=== PATIENT | male | born 1955 | race Caucasian/White ===

== ENCOUNTER → 2016-12-24 | Outpatient (CLI) | payer OTHER, MEDICARE ==
[~2016-12-24] MED LIST: ATV1 PO; HYDR-4330 PO; KPP/750 PO; Levothyroxine Sodium PO; MULT-506 PO; PANT40TA PO
[2016-12-24 12:30] LABS: BASO % 0.6 %; BASO ABS # 0.04 K/uL (0-0.2); COMPLETE YES; EOS % 4.9 %; HEMATOCRIT 42.7 % (42-52); IG% 0.3 %; LYMPH % 20.2 %; LYMPH ABS # 1.41 K/uL (1.2-3.4); MEAN CELL VOLUME 99.5 fL (80-100); MEAN CORPUSCULAR HEMOGLOBIN 32.9 pg (25-34); MEAN PLATELET VOLUME 10.3 fL (7.4-10.4); MONO % 9.9 %; NEUT % 64.1 %; PLATELET COUNT 257 K/uL (130-400); RED BLOOD COUNT 4.29 M/uL (4.7-6.1); WHITE BLOOD COUNT 6.98 K/uL (4.8-10.8)
[2016-12-24 12:41] LABS: ALT/SGPT 18 U/L (12-78); BLOOD UREA NITROGEN 18 mg/dl (7-18); BUN/CREATININE RATIO 14.6 (10-20); CALCIUM 9.2 mg/dl (8.5-10.1); CARBON DIOXIDE 31 mmol/L (21-32); CHLORIDE 103 mmol/L (98-107); GLUCOSE 93 mg/dl (70-99); POTASSIUM 4.9 mmol/L (3.5-5.1); SODIUM 140 mmol/L (136-145)
[2016-12-24 12:51] LABS: ALB/GLOB RATIO 0.9 (0.9-2); ALKALINE PHOSPHATASE 90 U/L (45-117); AST/SGOT 10 U/L (15-37)
== END | disposition home or self-care (01) ==
LOC: C.LABPVFM 10:10
PROVIDERS: ATTEND Family Medicine
DX: Z11.59 Encounter for screening for other viral diseases (principal); E03.9 Hypothyroidism, unspecified; K21.9 Gastro-esophageal reflux disease without esophagitis; R22.1 Localized swelling, mass and lump, neck; R05 Cough

== ENCOUNTER → 2016-12-26 | Outpatient (CLI) | payer OTHER, MEDICARE ==
--- NOTE | 2016-12-26 12:48 | DIAGNOSTIC IMAGING REPORT ---
ULTRASOUND SOFT TISSUES NECK CLINICAL HISTORY: Palpable lump. History of unspecified squamous carcinoma. COMPARISON STUDY: CT scan of the cervical spine dated 09/09/2012. Carotid artery ultrasound dated 07/18/2008. FINDINGS: Real-time, grayscale, and color Doppler sonography of the soft tissues of the neck is performed bilaterally. No mass or fluid collection is seen. Tiny benign-appearing cervical lymph nodes are incidentally noted. There is moderate to advanced atherosclerotic plaque in the right carotid bulb. Elevated velocities are seen within the proximal right internal carotid artery measure up to 152 cm/s. This corresponds to approximately 50-69% stenosis by velocity criteria. Imaging of the left carotid artery shows atherosclerotic plaque with no elevated velocities. IMPRESSION: 1. No concerning mass or fluid collection is identified in the neck. No lymphadenopathy seen. 2. There is atherosclerotic plaque with evidence of 50-69% stenosis of the proximal right internal carotid artery by velocity criteria. Electronically signed by: Jeremie Espino M.D. 12/26/2016 12:47 PM Dictated Date/Time: 12/26/2016 12:40 PM
== END | disposition home or self-care (01) ==
LOC: C.ULTR 12:08
PROVIDERS: ATTEND Family Medicine
DX: R22.1 Localized swelling, mass and lump, neck (principal)

== ENCOUNTER → 2017-01-23 | Outpatient (CLI) | payer OTHER, MEDICARE ==
--- NOTE | 2017-01-23 11:17 | DIAGNOSTIC IMAGING REPORT ---
BILATERAL CAROTID DOPPLER STUDY HISTORY: Dizziness. COMPARISON: Carotid Doppler 07/18/2008. TECHNIQUE: Real-time, grayscale, and color Doppler sonography of the carotid arteries was performed. Imaging reviewed in the transverse and longitudinal planes. All measurements were calculated based on NASCET criteria. FINDINGS: Antegrade flow is seen in the bilateral vertebral arteries. The brachial pressures are hemodynamically similar. Moderate focal soft plaque within the bilateral common carotid arteries. There is also moderate right and mild left atherosclerotic plaque within the bilateral carotid bifurcations. The peak systolic velocity within the right ICA is 131 cm/s proximally. The right systolic ratio is 1.8. The peak systolic velocity within the left ICA is 64 cm/s. The left systolic ratio is 0.7. Peak velocity of 138 cm/s within the left external carotid artery. IMPRESSION: 1. Bilateral atherosclerotic plaque as described above. 2. Approximately 50-69% stenosis within the proximal right internal carotid artery. 3. Mild stenosis within the proximal left external carotid artery. Electronically signed by: Jasmeet Cassidy M.D. 01/23/2017 11:16 AM Dictated Date/Time: 01/23/2017 11:11 AM
== END | disposition home or self-care (01) ==
LOC: C.ULTR 10:35
PROVIDERS: ATTEND Family Medicine
DX: R42 Dizziness and giddiness (principal); I65.23 Occlusion and stenosis of bilateral carotid arteries

== ENCOUNTER → 2017-08-05 | Outpatient (CLI) | payer OTHER, MEDICARE ==
[2017-08-05 17:51] LABS: PROSTATE SPECIFIC ANTIGEN 0.991 ng/ml (0.000-4.000); THYROID STIMULATING HORMONE 4.61 uIu/ml (0.300-4.500)
== END | disposition home or self-care (01) ==
LOC: C.LABPVFM 09:52
PROVIDERS: ATTEND Family Medicine
DX: E03.9 Hypothyroidism, unspecified (principal); Z12.5 Encounter for screening for malignant neoplasm of prostate

== ENCOUNTER → 2018-01-05 | Outpatient (CLI) | payer OTHER, BC | END | disposition home or self-care (01) | LOC: C.LABPVFM 10:20 | PROVIDERS: ATTEND Family Medicine | DX: E03.9 Hypothyroidism, unspecified (principal) ==

== ENCOUNTER 2020-06-27 13:43 | Inpatient (IN) ==
[2020-06-27] MEDS ORDERED: SODIUM CHLORIDE 0.9% 1000ML 1,000 ML IV ONE (14:12)
[2020-06-27 14:52] LABS: Basophils # (auto) 0.02 K/uL (0-0.2); Basophils % (auto) 0.2 %; Eosinophils # (auto) 0.02 K/uL (0-0.5); Eosinophils % (auto) 0.2 %; Hematocrit (blood only) 35.6 % (42-52); Hemoglobin 11.6 g/dL (14.0-18.0); Immature Granulocytes # (auto) 0.02 K/uL (0.00-0.02); Immature Granulocytes % (auto) 0.2 %; Lymphocytes # (auto) 0.71 K/uL (1.2-3.4); Lymphocytes % (auto) 8.1 %; Mean Corpuscular Hemoglobin 32.6 pg (25-34); Mean Corpuscular Hgb Conc 32.6 g/dL (32-36); Mean Platelet Volume 10.3 fL (7.4-10.4); Monocytes # (auto) 0.67 K/uL (0.11-0.59); Monocytes % (auto) 7.7 %; Neutrophils # (auto) 7.29 K/uL (1.4-6.5); Neutrophils % (auto) 83.6 %; Platelet Count 221 K/uL (130-400); Red Blood Count 3.56 M/uL (4.7-6.1); White Blood Count 8.73 K/uL (4.8-10.8)
--- NOTE | 2020-06-27 14:53 | Emergency Department Note ---
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 Patient follows with [facility] pulmonology Dr. Beach. He has had a recent CT scan that demonstrated tree-in-bud appearance with left lower lobe predominance which was new compared to February 2019. He has a vest for his bronchiectasis and is on chronic azithromycin prophylactically. There has been discussions of possible PEG tube if symptoms persist. Blood work from yesterday demonstrates WBC within normal limits. Procalcitonin 0.45 creatinine 1.4 with BUN of 29. Denies CP, n/v/d, urinary sx. On arrival the patient is fatigued appearing but no acute distress, afebrile with stable vital signs though does have hypoxia to 87% on RA. He has diminished breath sounds with scant intermittent wheeze. He has normal work of breathing at rest. He does appear clinically dry. EKG without evidence of acute ischemia. CXR with perihilar opacities, which given patient's report of fevers suspicious for pna. WBC and platelets wnl. H/H similar to prior range of values. Chemistry without acidosis. Electrolytes and LFTs unremarkable. Troponin negative/undetectable. BNP wnl. Procalcitonin 0.45. UA without convincing infection. Covid19 pcr negative. Patient was treated empirically with Ertapenem given history of ESBL Klebsiella pna. Given hypoxia, reasonable to admit for further management. Case was discussed with Dr. Lowe, [facility] hospitalist, who will evaluate the patient for admission. Triage Nursing notes reviewed and agree them. Additional history obtained from [facility] records. Prior medical records reviewed Vital Signs: reviewed and remarkable for no significant abnormalities Differential diagnosis: Reactive airway disease, pneumonia, pneumothorax, COPD, CHF, infections, cardiac ischemia, pulmonary embolism, musculoskeletal, gastrointestinal, as well as other pathologies. ER treatment provided: See below. Diagnostics interpreted by me: ECG: Sinus rhythm, 89 bpm, PACs in big[place]y, incomplete RBBB, no overt ST elevation or depression. Cardiac Monitoring: An order for continuous cardiac monitoring was placed and demonstrated sinus rhythm, 89 bpm, PACs Laboratory studies: See below Imaging studies: XR chest 1V portable HISTORY: 65 years-old Male SEPSIS acute sepsis COMPARISON: Chest radiograph 10/03/2015 TECHNIQUE: Portable AP view of the chest FINDINGS: Cardiac silhouette is normal. No pneumothorax, pleural effusion or overt pulmonary edema. Mild asymmetric right perihilar opacities. Mild interstitial coarsening. No pneumothorax, pleural effusion, overt pulmonary edema or airspace consolidation typical for pneumonia. Degenerative changes of the shoulders and spine. Cervical spinal fusion hardware. IMPRESSION: Mild asymmetric right perihilar opacities may be secondary to summa tion density versus subtle airspace disease. Consultation(s): Case was discussed with Dr. Lowe, [facility] hospitalist, who will evaluate the patient for admission. 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 Patient follows with [facility] pulmonology Dr. Beach. He has had a recent CT scan that demonstrated tree-in-bud appearance with left lower lobe predominance which was new compared to February 2019. He has a vest for his bronchiectasis and is on chronic azithromycin prophylactically. There has been discussions of possible PEG tube if symptoms persist. Blood work from yesterday demonstrates WBC within normal limits. Procalcitonin 0.45 creatinine 1.4 with BUN of 29. Denies CP, n/v/d, urinary sx. Blood work from yesterday demonstrates WBC within normal limits. Procalcitonin 0.45 creatinine 1.4 with BUN of 29. ROS: See above HPI for pertinent positives & negatives. A total of 10 systems reviewed and were otherwise negative. PAST MEDICAL HISTORY:See Below PAST SURGICAL HISTORY:See Below FAMILY HISTORY:See Below SOCIAL HISTORY:See Below HOME MEDICATIONS:See Below ALLERGIES:See Below VITALS:See Below PHYSICAL EXAMINATION: GENERAL: Awake, alert, fatigued-appearing, in no distress HENT: Normocephalic, atraumatic. Oropharynx with dry mucous membranes and otherwise unremarkable. . EYES: Normal conjunctiva. Sclera non-icteric. NECK: Supple. No nuchal rigidity. FROM. No JVD. RESPIRATORY: Diminished breath sounds with scant intermittent wheeze. He has normal work of breathing at rest. CARDIAC: Regular rate, normal rhythm. Extremities warm and well perfused. Pulses equal. ABDOMEN: Soft, non-distended. No tenderness to palpation. No rebound or guarding. No masses. RECTAL: Deferred. MUSCULOSKELETAL: Chest examination reveals no tenderness. The back is symmetrical on inspection without obvious abnormality. There is no CVA tenderness to palpation. No joint edema. LOWER EXTREMITIES: Calves are equal size bilaterally and non-tender. No edema. No discoloration. NEURO: Normal sensorium. No sensory or motor deficits noted. SKIN: No rash or jaundice noted. Андрей Silverman MD Past Med/Surg History Medical History Acute postoperative pain of foot Anemia Anxiety state, unspecified Blurry vision BPH (benign prostatic hyperplasia) Bronchiectasis Cervical spondylosis Chronic obstructive pulmonary disease Chronic obstructive pulmonary disease nebulizer bid Difficulty swallowing Disorder of upper airway Dysphagia Esophageal stenosis GERD (gastroesophageal reflux disease) H/O esophageal reflux Hernia History of cancer tonsil History of cancer tonsil 2000--right side--sx/chemo/radiation History of celiac disease History of malignant neoplasm of oropharynx Hoarseness Hyperlipidemia Hypotension Hypothyroidism Hypothyroidism Laryngopharyngeal reflux Macrocytic anemia Neck pain Obstructive sleep apnea Osteoarthritis Persistent insomnia Pulmonary nodule Rupture of left long head biceps tendon 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 Seizure disorder Small cell carcinoma Stenosis of right internal carotid artery Tear of left biceps muscle Tonsillar neoplasm Surgical History H/O vascular surgery attempted to do iliac stent through groin @ [facility]--unable to advance and procedure ended--sent to [facility] in 12/2018 for carotid angioplasty and steting History of ankle fusion left foot after ORIF History of bronchoscopy History of carotid angioplasty right side with stent placed @ [facility] 12/2018 History of colonoscopy with polypectomy History of esophagogastroduodenoscopy (EGD) History of fusion of cervical spine normal ROM History of lymph node excision right side at same time as tonsillectomy History of open reduction and internal fixation (ORIF) procedure right foot--pins/plates in place History of open reduction and internal fixation (ORIF) procedure left foot--pins/plate History of right inguinal hernia repair History of tonsillectomy History of tooth extraction Hx of vasectomy Lymphoma of lymph nodes of neck Vocal cord paralysis sx to improve--02/2019 @ [facility] Family History Mother Rheumatoid arthritis Father Heart disease Stroke Brother Non-Hodgkin lymphoma Heart disease Uncle Colorectal cancer Grandfather (Maternal) Myocardial infarction Grandmother (Maternal) Myocardial infarction Other No family history of adverse response to anesthesia Social History Smoking Status: Former smoker Tobacco Type: Cigarettes Second Hand Exposure: Yes ( smokes in garage, sometimes car); Do You Dip or Chew Tobacco: No; Hx Alcohol Use: Yes Alcohol type: beer Hx Substance Use: No Preferred Language: Italian Communication Ability: Effective Cathead Operator Required: No Beliefs That Will Affect Care: None marital status: Current Living Situation: Family current occupational status: retired 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 Other Information That Helps Us Care for You: No Feels Safe at Home: Yes Safety Concerns: Feels Safe At This Time Childhood Exposure to Second-Hand Smoke: No Dental Care, Regularly: No Seatbelt Use: always Allergies Allergies Allergy/AdvReac Type Severity Reaction Status Date / Time hydromorphone Allergy Severe CARDIAC/RESPIRATORY Verified 06/27/20 15:40 ARREST tetracycline Allergy Intermediate SORES ON Verified 06/27/20 15:40 SKIN Sulfa (Sulfonamide Allergy Mild Rash Verified 06/27/20 15:40 Antibiotics) amoxicillin [From Augmentin] Allergy Unknown Unverified 06/27/20 15:43 clavulanic acid Allergy Unknown Unverified 06/27/20 15:43 [From Augmentin] Home Meds Home Medications Medication Instructions Recorded Confirmed albuterol sulfate 2.5 mg INHALATION BID 09/06/19 06/27/20 aspirin 81 mg PO QAM 09/06/19 06/27/20 multivitamin [Multiple Vitamins] 1 tab PO QAM 09/06/19 06/27/20 mupirocin calcium 1 appln TOPICAL BID PRN 09/06/19 06/27/20 simvastatin 40 mg PO DAILY 09/06/19 06/27/20 triamcinolone acetonide 1 appln TOPICAL BID PRN 09/06/19 06/27/20 Previous Rx's Medication Instructions Recorded levothyroxine 175 mcg tablet 175 mcg PO DAILY #90 tab 03/07/20 levetiracetam 100 mg/mL oral 750 mg PO BID #1419 ml 04/04/20 solution pantoprazole 40 mg tablet,delayed 40 mg PO BID #180 tab 06/12/20 release lorazepam 1 mg tablet 1 mg PO HS PRN #90 tab 06/22/20 Results & Data (ED) Vital Signs Vital Signs - 24 hr 06/27/20 13:53 06/27/20 14:33 06/27/20 14:40 Temperature 37.4 C Temperature Source Oral Pulse Rate 89 88 80 Pulse Rate [Apical] Pulse Rate from SpO2 Sensor 91 H Pulse Rhythm Regular Pulse Strength Normal Respiratory Rate 20 20 17 Respiratory Effort / Characteristics Non-Labored Spontaneous Respiratory Depth Normal Respiratory Pattern Regular Blood Pressure 90/62 L 122/79 Blood Pressure Mean 71 85 Blood Pressure Position Sitting Pulse Oximetry 94 92 Oxygen Delivery Method Room Air Oxygen Flow Rate Sepsis Recent Fever Within 48 Hours No Sepsis New/Unexplained Change in Mental Status No Sepsis Action Taken by Nursing No Action Required 06/27/20 14:41 06/27/20 14:42 06/27/20 15:00 Temperature Temperature Source Pulse Rate 99 H 79 Pulse Rate [Apical] Pulse Rate from SpO2 Sensor 80 Pulse Rhythm Pulse Strength Respiratory Rate 20 24 Respiratory Effort / Characteristics Respiratory Depth Respiratory Pattern Blood Pressure 140/93 Blood Pressure Mean 108 Blood Pressure Position Pulse Oximetry 93 93 91 Oxygen Delivery Method Room Air Room Air Room Air Oxygen Flow Rate Sepsis Recent Fever Within 48 Hours Sepsis New/Unexplained Change in Mental Status Sepsis Action Taken by Nursing 06/27/20 15:01 06/27/20 15:14 06/27/20 15:30 Temperature Temperature Source Pulse Rate 73 74 Pulse Rate [Apical] Pulse Rate from SpO2 Sensor 78 76 Pulse Rhythm Pulse Strength Respiratory Rate 24 21 Respiratory Effort / Characteristics Non-Labored Spontaneous Respiratory Depth Respiratory Pattern Blood Pressure 129/80 Blood Pressure Mean 87 Blood Pressure Position Pulse Oximetry 93 94 91 Oxygen Delivery Method Room Air Room Air Room Air Oxygen Flow Rate Sepsis Recent Fever Within 48 Hours Sepsis New/Unexplained Change in Mental Status Sepsis Action Taken by Nursing 06/27/20 15:31 06/27/20 16:00 06/27/20 16:01 Temperature Temperature Source Pulse Rate 72 79 80 Pulse Rate [Apical] Pulse Rate from SpO2 Sensor 72 79 78 Pulse Rhythm Pulse Strength Respiratory Rate 21 21 18 Respiratory Effort / Characteristics Respiratory Depth Respiratory Pattern Blood Pressure 114/76 Blood Pressure Mean 81 Blood Pressure Position Pulse Oximetry 91 92 89 L Oxygen Delivery Method Room Air Room Air Room Air Oxygen Flow Rate Sepsis Recent Fever Within 48 Hours Sepsis New/Unexplained Change in Mental Status Sepsis Action Taken by Nursing 06/27/20 16:25 06/27/20 16:27 06/27/20 16:30 Temperature Temperature Source Pulse Rate 76 Pulse Rate [Apical] Pulse Rate from SpO2 Sensor 78 Pulse Rhythm Pulse Strength Respiratory Rate 21 Respiratory Effort / Characteristics Respiratory Depth Respiratory Pattern Blood Pressure 139/99 Blood Pressure Mean 104 Blood Pressure Position Pulse Oximetry 87 L 94 95 Oxygen Delivery Method Room Air Nasal Cannula Nasal Cannula Oxygen Flow Rate 2 2 Sepsis Recent Fever Within 48 Hours Sepsis New/Unexplained Change in Mental Status Sepsis Action Taken by Nursing 06/27/20 17:00 06/27/20 17:04 06/27/20 17:30 Temperature Temperature Source Pulse Rate 80 82 Pulse Rate [Apical] 78 Pulse Rate from SpO2 Sensor 78 82 Pulse Rhythm Pulse Strength Respiratory Rate 17 22 24 Respiratory Effort / Characteristics Non-Labored Spontaneous Respiratory Depth Respiratory Pattern Blood Pressure 133/90 100/58 L Blood Pressure Mean 105 69 Blood Pressure Position Pulse Oximetry 94 94 93 Oxygen Delivery Method Nasal Cannula Room Air Nasal Cannula Oxygen Flow Rate 2 1.5 1.5 Sepsis Recent Fever Within 48 Hours Sepsis New/Unexplained Change in Mental Status Sepsis Action Taken by Nursing 06/27/20 18:00 Temperature Temperature Source Pulse Rate 79 Pulse Rate [Apical] Pulse Rate from SpO2 Sensor 69 Pulse Rhythm Pulse Strength Respiratory Rate 21 Respiratory Effort / Characteristics Respiratory Depth Respiratory Pattern Blood Pressure 132/97 Blood Pressure Mean 110 Blood Pressure Position Pulse Oximetry 94 Oxygen Delivery Method Nasal Cannula Oxygen Flow Rate 1.5 Sepsis Recent Fever Within 48 Hours Sepsis New/Unexplained Change in Mental Status Sepsis Action Taken by Nursing Laboratory Data Attestation: I reviewed the patient's lab results. Result diagrams: 06/27/20 14:35 06/27/20 14:35 Lab Results 06/27/20 06/27/20 06/27/20 Range/Units 14:28 14:35 14:35 WBC 8.73 (4.8-10.8) K/uL RBC 3.56 L (4.7-6.1) M/uL Hgb 11.6 L (14.0-18.0) g/dL Hct 35.6 L (42-52) % MCV 100.0 (80-100) fL MCH 32.6 (25-34) pg MCHC 32.6 (32-36) g/dL RDW Std Deviation 48.0 H (36.4-46.3) fL RDW Coeff of Jordy 13.0 (11.5-14.5) % Plt Count 221 (130-400) K/uL MPV 10.3 (7.4-10.4) fL Immature Gran % (Auto) 0.2 % Neut % (Auto) 83.6 % Lymph % (Auto) 8.1 % Marshall % (Auto) 7.7 % Eos % (Auto) 0.2 % Baso % (Auto) 0.2 % Neut # (Auto) 7.29 H (1.4-6.5) K/uL Lymph # (Auto) 0.71 L (1.2-3.4) K/uL Marshall # (Auto) 0.67 H (0.11-0.59) K/uL Eos # (Auto) 0.02 (0-0.5) K/uL Baso # (Auto) 0.02 (0-0.2) K/uL Immature Gran # (Auto) 0.02 (0.00-0.02) K/uL PT 10.9 (9.0-12.0) Seconds INR 1.0 (0.9-1.1) APTT 29.2 (21.0-31.0) Seconds PTT Ratio 1.0 Sodium (136-145) mmol/L Potassium (3.5-5.1) mmol/L Chloride (98-107) mmol/L Carbon Dioxide (21-32) mmol/L Anion Gap (3-11) BUN (7-18) mg/dl Creatinine (0.6-1.4) mg/dl Est Cr Clr Drug Dosing ml/min Est GFR ( Amer) Est GFR (Non-Af Amer) BUN/Creatinine Ratio (10-20) Glucose (70-99) mg/dl Lactate 1.1 (0.4-2.0) mmol/L Calcium (8.5-10.1) mg/dl Phosphorus (2.5-4.9) mg/dl Magnesium (1.8-2.4) mg/dl Total Bilirubin (0.2-1) mg/dl AST (15-37) U/L ALT (12-78) U/L Alkaline Phosphatase (45-117) U/L Troponin I (0-0.045) ng/ml NT-Pro-B Natriuret Pep (0-900) pg/ml Total Protein (6.4-8.2) gm/dl Albumin (3.4-5.0) gm/dl Globulin (2.5-4.0) gm/dl Albumin/Globulin Ratio (0.9-2) Procalcitonin (0-0.5) ng/ml Urine Color Urine Appearance (Clear) Urine pH (4.5-7.5) Ur Specific Hastings (1.000-1.030) Urine Protein (Negative) Urine Glucose (UA) (Negative) Urine Ketones (Negative) Urine Blood (Negative) Urine Nitrite (Negative) Urine Bilirubin (Negative) Urine Urobilinogen (Negative) Ur Leukocyte Esterase (Negative) Urine WBC (Auto) (0-5) /hpf Urine RBC (Auto) (0-4) /hpf U Hyaline Cast (Auto) (0-5) /lpf U Epithel Cells (Auto) (0-5) /lpf Urine Bacteria (Auto) (Negative) COVID-19 Eval Order COVID-19 PCR (Negative) 06/27/20 06/27/20 06/27/20 Range/Units 14:35 14:35 14:47 WBC (4.8-10.8) K/uL RBC (4.7-6.1) M/uL Hgb (14.0-18.0) g/dL Hct (42-52) % MCV (80-100) fL MCH (25-34) pg MCHC (32-36) g/dL RDW Std Deviation (36.4-46.3) fL RDW Coeff of Jordy (11.5-14.5) % Plt Count (130-400) K/uL MPV (7.4-10.4) fL Immature Gran % (Auto) % Neut % (Auto) % Lymph % (Auto) % Marshall % (Auto) % Eos % (Auto) % Baso % (Auto) % Neut # (Auto) (1.4-6.5) K/uL Lymph # (Auto) (1.2-3.4) K/uL Marshall # (Auto) (0.11-0.59) K/uL Eos # (Auto) (0-0.5) K/uL Baso # (Auto) (0-0.2) K/uL Immature Gran # (Auto) (0.00-0.02) K/uL PT (9.0-12.0) Seconds INR (0.9-1.1) APTT (21.0-31.0) Seconds PTT Ratio Sodium 137 (136-145) mmol/L Potassium 4.1 (3.5-5.1) mmol/L Chloride 105 (98-107) mmol/L Carbon Dioxide 27 (21-32) mmol/L Anion Gap 5.0 (3-11) BUN 29 H (7-18) mg/dl Creatinine 1.29 (0.6-1.4) mg/dl Est Cr Clr Drug Dosing 51.7 ml/min Est GFR ( Amer) 66.5 Est GFR (Non-Af Amer) 57.4 BUN/Creatinine Ratio 22.5 H (10-20) Glucose 78 (70-99) mg/dl Lactate (0.4-2.0) mmol/L Calcium 9.3 (8.5-10.1) mg/dl Phosphorus 2.6 (2.5-4.9) mg/dl Magnesium 2.2 (1.8-2.4) mg/dl Total Bilirubin 0.4 (0.2-1) mg/dl AST 13 L (15-37) U/L ALT 17 (12-78) U/L Alkaline Phosphatase 85 (45-117) U/L Troponin I < 0.015 (0-0.045) ng/ml NT-Pro-B Natriuret Pep 427 (0-900) pg/ml Total Protein 7.9 (6.4-8.2) gm/dl Albumin 3.0 L (3.4-5.0) gm/dl Globulin 4.9 H (2.5-4.0) gm/dl Albumin/Globulin Ratio 0.6 L (0.9-2) Procalcitonin 0.45 (0-0.5) ng/ml Urine Color Urine Appearance (Clear) Urine pH (4.5-7.5) Ur Specific Hastings (1.000-1.030) Urine Protein (Negative) Urine Glucose (UA) (Negative) Urine Ketones (Negative) Urine Blood (Negative) Urine Nitrite (Negative) Urine Bilirubin (Negative) Urine Urobilinogen (Negative) Ur Leukocyte Esterase (Negative) Urine WBC (Auto) (0-5) /hpf Urine RBC (Auto) (0-4) /hpf U Hyaline Cast (Auto) (0-5) /lpf U Epithel Cells (Auto) (0-5) /lpf Urine Bacteria (Auto) (Negative) COVID-19 Eval Order Covid19 Done at [facility] COVID-19 PCR (Negative) 06/27/20 06/27/20 Range/Units 14:47 17:40 WBC (4.8-10.8) K/uL RBC (4.7-6.1) M/uL Hgb (14.0-18.0) g/dL Hct (42-52) % MCV (80-100) fL MCH (25-34) pg MCHC (32-36) g/dL RDW Std Deviation (36.4-46.3) fL RDW Coeff of Jordy (11.5-14.5) % Plt Count (130-400) K/uL MPV (7.4-10.4) fL Immature Gran % (Auto) % Neut % (Auto) % Lymph % (Auto) % Marshall % (Auto) % Eos % (Auto) % Baso % (Auto) % Neut # (Auto) (1.4-6.5) K/uL Lymph # (Auto) (1.2-3.4) K/uL Marshall # (Auto) (0.11-0.59) K/uL Eos # (Auto) (0-0.5) K/uL Baso # (Auto) (0-0.2) K/uL Immature Gran # (Auto) (0.00-0.02) K/uL PT (9.0-12.0) Seconds INR (0.9-1.1) APTT (21.0-31.0) Seconds PTT Ratio Sodium (136-145) mmol/L Potassium (3.5-5.1) mmol/L Chloride (98-107) mmol/L Carbon Dioxide (21-32) mmol/L Anion Gap (3-11) BUN (7-18) mg/dl Creatinine (0.6-1.4) mg/dl Est Cr Clr Drug Dosing ml/min Est GFR ( Amer) Est GFR (Non-Af Amer) BUN/Creatinine Ratio (10-20) Glucose (70-99) mg/dl Lactate (0.4-2.0) mmol/L Calcium (8.5-10.1) mg/dl Phosphorus (2.5-4.9) mg/dl Magnesium (1.8-2.4) mg/dl Total Bilirubin (0.2-1) mg/dl AST (15-37) U/L ALT (12-78) U/L Alkaline Phosphatase (45-117) U/L Troponin I (0-0.045) ng/ml NT-Pro-B Natriuret Pep (0-900) pg/ml Total Protein (6.4-8.2) gm/dl Albumin (3.4-5.0) gm/dl Globulin (2.5-4.0) gm/dl Albumin/Globulin Ratio (0.9-2) Procalcitonin (0-0.5) ng/ml Urine Color Dark Yellow Urine Appearance Clear (Clear) Urine pH 6.5 (4.5-7.5) Ur Specific Hastings 1.031 H (1.000-1.030) Urine Protein Trace H (Negative) Urine Glucose (UA) Negative (Negative) Urine Ketones 1+ H (Negative) Urine Blood Negative (Negative) Urine Nitrite Negative (Negative) Urine Bilirubin Negative (Negative) Urine Urobilinogen Negative (Negative) Ur Leukocyte Esterase Negative (Negative) Urine WBC (Auto) 1-5 (0-5) /hpf Urine RBC (Auto) 5-10 H (0-4) /hpf U Hyaline Cast (Auto) 5-10 H (0-5) /lpf U Epithel Cells (Auto) 10-20 H (0-5) /lpf Urine Bacteria (Auto) Negative (Negative) COVID-19 Eval Order COVID-19 PCR NEGATIVE (Negative) Administered Medications Levetiracetam (Levetiracetam Oral Soln 100mg/Ml) 750 mg PO BID VALENTE Stop: 07/27/20 20:59 Last Admin: 06/27/20 21:19 Dose: 750 mg Documented by: [id number] Lorazepam (Lorazepam 1 Mg Tab) 1 mg PO HS PRN PRN Reason: insomnia Stop: 07/27/20 20:19 Last Admin: 06/27/20 22:45 Dose: 1 mg Documented by: [id number] Pantoprazole Sodium (Pantoprazole 40 Mg Tab) 40 mg PO BID VALENTE Stop: 07/27/20 20:59 Last Admin: 06/27/20 21:20 Dose: 40 mg Documented by: [id number] Discontinued Medications Albuterol (Albut/Ipratrop 3mg/0.5mg Neb 3 Ml Vial) 3 ml NEB NOW STA Stop: 06/27/20 16:36 Last Admin: 06/27/20 17:04 Dose: 3 ml Documented by: [id number] Dexamethasone (Dexamethasone Sod Inj 10 Mg/Ml Vial) 10 mg IV NOW ONE Stop: 06/27/20 16:36 Last Admin: 06/27/20 16:48 Dose: 10 mg Documented by: [id number] Guaifenesin (Guaifenesin 600 Mg Tabcr) 600 mg PO NOW STA Stop: 06/27/20 16:36 Last Admin: 06/27/20 16:48 Dose: Not Given Documented by: [id number] Sodium Chloride (Nss 1000ml) 1,000 mls @ 999 mls/hr IV .[id number] ONE Stop: 06/27/20 15:12 Last Infusion: 06/27/20 15:46 Dose: 0 mls/hr Documented by: [id number] Admin: 06/27/20 14:45 Dose: 999 mls/hr Documented by: [id number] Ertapenem (Invanz) 10 mls @ 2 mls/min IV NOW STA Stop: 06/27/20 17:19 Last Admin: 06/27/20 17:33 Dose: 2 mls/min Documented by: [id number] Blood Pressure Blood Pressure Findings: Normal blood pressure Blood Pressure Disposition: further management by hospitalist Discharge Plan Visit Data Chief Complaint: Shortness of Breath/Dyspnea Stated Complaint: SOB, BACK PAIN ED Provider: Андрей Silverman Discharge Problem: Pneumonia, Bronchiectasis, COPD (chronic obstructive pulmonary disease), Hypoxia Patient Disposition: Admitted As Inpatient Discharge Instructions Interventions: ED Discharge Assessment Last Done: 06/27/20 19:29 Discharge Problem: Pneumonia Qualifiers: Pneumonia type: due to unspecified organism Laterality: bilateral Lung location: unspecified part of lung Qualified Code(s): J18.9 - Pneumonia, unspecified organism
[2020-06-27 15:03] LABS: Partial Thromboplastin Time 29.2 Seconds (21.0-31.0); Prothrombin Time 10.9 Seconds (9.0-12.0)
[2020-06-27 15:12] LABS: Alanine Aminotransferase 17 U/L (12-78); Aspartate Aminotransferase 13 U/L (15-37); BUN Creatinine Ratio 22.5 (10-20); Blood Urea Nitrogen 29 mg/dl (7-18); Calcium 9.3 mg/dl (8.5-10.1); Carbon Dioxide 27 mmol/L (21-32); Chloride 105 mmol/L (98-107); Creatinine Clr Calc Pharmacy 51.7 ml/min; Est GFR (African American) 66.5; Est GFR (Non-African American) 57.4; Glucose 78 mg/dl (70-99); Magnesium 2.2 mg/dl (1.8-2.4); Potassium 4.1 mmol/L (3.5-5.1); Sodium 137 mmol/L (136-145)
[2020-06-27 15:17] LABS: Albumin Globulin Ratio 0.6 (0.9-2); Alkaline Phosphatase 85 U/L (45-117); Bilirubin,Total 0.4 mg/dl (0.2-1); Globulin 4.9 gm/dl (2.5-4.0); NT Pro B Type Natriuretic Pept 427 pg/ml (0-900); Phosphorus 2.6 mg/dl (2.5-4.9); Total Protein 7.9 gm/dl (6.4-8.2); Troponin I < 0.015 ng/ml (0-0.045)
--- NOTE | 2020-06-27 16:22 | XRay Report ---
XR chest 1V portable HISTORY: 65 years-old Male SEPSIS acute sepsis COMPARISON: Chest radiograph 10/03/2015 TECHNIQUE: Portable AP view of the chest FINDINGS: Cardiac silhouette is normal. No pneumothorax, pleural effusion or overt pulmonary edema. Mild asymme tric right perihilar opacities. Mild interstitial coarsening. No pneumothorax, pleural effusion, over t pulmonary edema or airspace consolidation typical for pneumonia. Degenerative changes of the should ers and spine. Cervical spinal fusion hardware. IMPRESSION: Mild asymmetric right perihilar opacities may be secondary to summation density versus leger btle airspace disease. ACT 112: Negative or not required by law. The above report was generated using voice recognition software. It may contain grammatical, syntax o r spelling errors. Electronically signed by: Jon Fry M.D. 06/27/2020 4:21 PM
--- NOTE | 2020-06-27 16:33 | Electrocardiogram Report ---
Test Reason : Blood Pressure : / mmHG Vent. Rate : 089 BPM Atrial Rate : 089 BPM P-R Int : 110 ms QRS Dur : 104 ms QT Int : 366 ms P-R-T Axes : 079 087 066 degrees QTc Int : 445 ms Poor data quality, interpretation may be adversely affected Sinus rhythm with short DE with Premature atrial complexes in a pattern of bigeminy Incomplete right bundle branch block Borderline ECG When compared with ECG of 03-OCT-2015 11:12, Premature atrial complexes are now Present Confirmed by Robert Butler ([id number]) on 06/27/2020 4:32:51 PM Referred By: Confirmed By:Robert Butler
[2020-06-27] MEDS ORDERED: ALBUT/IPRATROP 3MG/0.5MG NEB 3 ML VIAL NEB STA (16:35)
[2020-06-27] MEDS ORDERED: guaiFENesin 600 MG TABCR PO STA (16:35)
[2020-06-27] MEDS ORDERED: DEXAMETHASONE SOD INJ 10 MG/ML VIAL IV ONE (16:35)
[2020-06-27] MEDS ORDERED: ERTAPENEM SODIUM 10 ML IV STA (17:15)
[2020-06-27 18:04] LABS: Appearance Urine Clear (Clear); Bacteria Urine Automated Negative (Negative); Blood Urine Negative (Negative); Color Urine Dark Yellow; Glucose Urine UA Negative (Negative); Ketones Urine 1+ (Negative); Leukocyte Esterase Urine Negative (Negative); Nitrite Urine Negative (Negative); Protein Urine Trace (Negative); Specific Gravity Urine 1.031 (1.000-1.030); Urobilinogen Urine Negative (Negative); pH Urine 6.5 (4.5-7.5)
[2020-06-27 18:09] LABS: Bilirubin Urine Negative (Negative); Ictotest Urine Negative (Negative)
--- NOTE | 2020-06-27 18:11 | History & Physical Report ---
Date of Service June 27, 2020 Assessment & Plan (1) Aspiration pneumonitis: vs. PNA. Ertapenem given in ER. No definitive PNA symptoms from history, imaging or exam given chronic bronchiectasis changes. Procalcitonin negative. Will defer further antibiotics to pulmonology as prior treatment for ESBL did not dramatically improve his symptoms Aspiration risk reduction as below. NPO for now pending discussions with [facility], GI and palliative care team for plan of action. (2) Bronchiectasis: Consult pulmonology (3) Pneumonia: Ertapenem given in ER for the antibiotics deferred as above. (4) COPD (chronic obstructive pulmonary disease): Continue duo nebs. On no maintenance inhalers for this. Unclear if true diagnosis. (5) Hypoxia: No oxygen requirement at home. Likely secondary to aspiration pneumonitis. Aim O2 sats > 90% (6) Esophageal stenosis: Notable history of this. No stenosis noted on recent EGD. Will consult GI to assess need for repeat EGD occasional food getting stuck although suspect this is more down to his lack of secretions than esophageal stenosis. (7) Hypothyroidism: Repeat TSH with a.m. labs continue levothyroxine 175 mcg p.o. daily (8) Laryngopharyngeal reflux: Continue pantoprazole 40 mg p.o. twice daily I suspect this caused the loss of his bronchiectasis as he continues to lie flat at night Elevate head of bed greater than 30 degrees at all times (9) History of celiac disease: Notable history of this. Unclear how this was diagnosed. He does not appear to be on a gluten-free diet at present. (10) BPH (benign prostatic hyperplasia): Notable history of this but was taken off medication I understand due to hypotension. Given ongoing symptoms if blood pressure stable will consider adding tamsulosin. (11) Anxiety state, unspecified: Continue his usual Lorazepam 1 mg p.o. at bedtime as needed Admission and Anticipated Discharge Date Admission Date: 06/27/2020 History of Present Illness Chief Complaint: Shortness of breath, fever, cough Primary Care Provider: Umesh Mcintyre DO Zander Aguilar is a 65 year old male with complex past medical history summarized below who presents to the ER with shortness of breath and fever for the last 3 days. Unfortunately the majority of his specialist care takes place in [facility] therefore care is somewhat fragmented and recent pulmonology notes are unavailable at time of admission. He denies any increase in his chronic cough, especially after eating. He just finished a 14 day course of IV ertapenem 8 days prior after Klebsiella ESBL was grown on sputum culture with PNA on CXR ?CT. He feels he has another infection though as his he is hearing more rasping in the center of his chest. No wheezing or chest pain. He does not think the antibiotics or nebulizer treatments improve his symptoms. He knows he chronically aspirates and reports no speech and language therapy has helped him the past. He has also tried electrical stimulation for swallowing at [facility]. Difficulty appears due to pooling of food, unable to initiate swal low reflex and lack of saliva. He reports being in discussion with his facilities maintenance assistant that he may need a PEG tube (he had one previously after his chemoradiation treatment in 2001) due to his weight loss and malnutrition. Lost 8lb in last 6 months. With regards to his swallowing he saw Dr Lopez last year with similar complaints and underwent EGD showing friable orophaynx and was advised to contin ue his current medication an return PRN. 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 He did relatively well directly after this but over the years has developed several complications including vocal cord paralysis, right carotid artery stenosis and dysphagia with chronic aspirations. Underwent bilateral medialization thyroplasty with facia marisa graft from right thigh in February 2019 which although the patient denies helped his ENT surgeon appeared to suggest his hoarseness was significantly improved. Notes additional history of atypical migraines with vision disturbances. Allergies Allergy/AdvReac Type Severity Reaction Status Date / Time hydromorphone Allergy Severe CARDIAC/RESPIRATORY Verified 06/27/20 15:40 ARREST tetracycline Allergy Intermediate SORES ON Verified 06/27/20 15:40 SKIN Sulfa (Sulfonamide Allergy Mild Rash Verified 06/27/20 15:40 Antibiotics) amoxicillin [From Augmentin] Allergy Unknown Unverified 06/27/20 15:43 clavulanic acid Allergy Unknown Unverified 06/27/20 15:43 [From Augmentin] Home Medications Home Medications Medication Instructions Recorded Confirmed Type albuterol sulfate 2.5 mg INHALATION BID 09/06/19 06/27/20 History aspirin 81 mg PO QAM 09/06/19 06/27/20 History multivitamin [Multiple Vitamins] 1 tab PO QAM 09/06/19 06/27/20 History mupirocin calcium 1 appln TOPICAL BID PRN 09/06/19 06/27/20 History simvastatin 40 mg PO DAILY 09/06/19 06/27/20 History triamcinolone acetonide 1 appln TOPICAL BID PRN 09/06/19 06/27/20 History levothyroxine 175 mcg tablet 175 mcg PO DAILY #90 tab 03/07/20 06/27/20 Rx levetiracetam 100 mg/mL oral 750 mg PO BID #1419 ml 04/04/20 06/27/20 Rx solution pantoprazole 40 mg tablet,delayed 40 mg PO BID #180 tab 06/12/20 06/27/20 Rx release lorazepam 1 mg tablet 1 mg PO HS PRN #90 tab 06/22/20 06/27/20 Rx Past Med/Surg History Medical History Acute postoperative pain of foot Anemia Anxiety state, unspecified Blurry vision BPH (benign prostatic hyperplasia) Bronchiectasis Cervical spondylosis Chronic obstructive pulmonary disease Chronic obstructive pulmonary disease nebulizer bid Difficulty swallowing Disorder of upper airway Dysphagia Esophageal stenosis GERD (gastroesophageal reflux disease) H/O esophageal reflux Hernia History of cancer tonsil History of cancer tonsil 2000--right side--sx/chemo/radiation History of celiac disease History of malignant neoplasm of oropharynx Hoarseness Hyperlipidemia Hypotension Hypothyroidism Hypothyroidism Laryngopharyngeal reflux Macrocytic anemia Neck pain Obstructive sleep apnea Osteoarthritis Persistent insomnia Pulmonary nodule Rupture of left long head biceps tendon 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 Seizure disorder Small cell carcinoma Stenosis of right internal carotid artery Tear of left biceps muscle Tonsillar neoplasm Surgical History H/O vascular surgery attempted to do iliac stent through groin @ [facility] [place] 11/2018--unable to advance and procedure ended--sent to [place] in 12/2018 for carotid angioplasty and steting History of ankle fusion left foot after ORIF History of bronchoscopy History of carotid angioplasty right side with stent placed @ [facility] [place] 12[place] History of colonoscopy with polypectomy History of esophagogastroduodenoscopy (EGD) History of fusion of cervical spine normal ROM History of lymph node excision right side at same time as tonsillectomy History of open reduction and internal fixation (ORIF) procedure right foot--pins/plates in place History of open reduction and internal fixation (ORIF) procedure left foot--pins/plate History of right inguinal hernia repair History of tonsillectomy History of tooth extraction Hx of vasectomy Lymphoma of lymph nodes of neck Vocal cord paralysis sx to improve--02/2019 @ [facility] Family History Mother Rheumatoid arthritis Father Heart disease Stroke Brother Non-Hodgkin lymphoma Heart disease Uncle Colorectal cancer Grandfather (Maternal) Myocardial infarction Grandmother (Maternal) Myocardial infarction Other No family history of adverse response to anesthesia Social History Smoking Status: Former smoker Tobacco Type: Cigarettes Second Hand Exposure: Yes ( smokes in garage, sometimes car); Do You Dip or Chew Tobacco: No; Hx Alcohol Use: Yes Alcohol type: beer Hx Substance Use: No Preferred Language: Occitan Communication Ability: Effective Roundhouse Firer/Fireman Required: No Beliefs That Will Affect Care: None marital status: Current Living Situation: Family current occupational status: retired 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 [email or web address] Other Information That Helps Us Care for You: No Feels Safe at Home: Yes Safety Concerns: Feels Safe At This Time Childhood Exposure to Second-Hand Smoke: No Dental Care, Regularly: No Seatbelt Use: always Review of Systems Review of Systems: All systems reviewed & are unremarkable except as noted in HPI & below Physical Exam Constitutional: well developed and + frail appearing; + not well nourished and no acute distress Eyes: PERRL, conjunctivae normal, anicteric sclerae ENMT: Mouth: + dry oral mucous membranes (Very dry) Neck: trachea midline Respiratory: Auscultation: + crackles (Throughout worse on the right base) and + rhonchi (Bilateral coarse upper airway sounds) Cardiovascular: RRR, no murmur, no edema Gastrointestinal (Abdomen): normal bowel sounds, soft, nontender, no hepatosplenomegaly Musculoskeletal: Generalized chronic muscle wasting Skin: no rashes, warm and dry Right neck chronic radiation changes Neurologic: moves all extremities and awake; no focal motor deficits and not confused Psychiatric: A+Ox3, euthymic affect Genitourinary: no CVA tenderness Results & Data Results & Data ([facility]) Vital Signs (Past 12 Hours) Vital Signs Temp Pulse Pulse Resp BP Pulse Ox 06/27/20 17:04 78 22 94 06/27/20 17:00 80 17 133/90 94 06/27/20 16:30 76 21 139/99 95 06/27/20 16:27 94 06/27/20 16:25 87 L 06/27/20 16:01 80 18 89 L 06/27/20 16:00 79 21 114/76 92 06/27/20 15:31 72 21 91 06/27/20 15:30 74 21 129/80 91 06/27/20 15:14 94 06/27/20 15:01 73 24 93 06/27/20 15:00 79 24 140/93 91 06/27/20 14:42 93 06/27/20 14:41 99 H 20 93 06/27/20 14:40 80 17 122/79 92 06/27/20 14:33 88 20 06/27/20 13:53 37.4 C 89 20 90/62 L 94 Diagnostic Findings XR chest 1V portable IMPRESSION: Mild asymmetric right perihilar opacities may be secondary to summation density versus subtle airspace disease. ECG Indication: SOB/dyspnea Rate (beats per minute): 89 Rhythm: normal sinus Findings: + PAC (Bigeminy) and + RBBB (Incomplete) Comparison ECG Date: from (October 03, 2015) Change: the following changes noted (PACs now present) Code Status & VTE Plan Code Status DNR in the event of a cardiac arrest. Discussed likely futility of intubation given his chronic lung disease, aspirations -however at present he was still like to be intubated in the case of a respiratory arrest. VTE Prophylaxis Plan VTE Prophylaxis will be ordered: Yes PG Care Time/CCT Total # of Minutes Spent Total Time Spent with Patient: Total time spent is greater than 50% in coordination of care (as documented) at patient's floor/unit and/or counseling patient: Coding Level of Care Code 58475 Initial Inpt Care Lvl 3 Diagnoses Aspiration pneumonitis J69.0 Bronchiectasis J47.9 Pneumonia J18.9 Laterality: bilateral Lung location: unspecified part of lung Pneumonia type: due to unspecified organism COPD (chronic obstructive pulmonary disease) J44.9 Hypoxia R09.02 Esophageal stenosis K22.2 Hypothyroidism E03.9 Laryngopharyngeal reflux K21.9 History of celiac disease Z87.19 BPH (benign prostatic hyperplasia) N40.0 Anxiety state, unspecified F41.1 (1) Pneumonia Laterality: bilateral Lung location: unspecified part of lung Pneumonia type: due to unspecified organism Qualified Code(s): J18.9 - Pneumonia, unspecified organism
[2020-06-27] MEDS ORDERED: ACETAMINOPHEN 325 MG TAB PO PRN (20:20)
[2020-06-27] MEDS ORDERED: ONDANSETRON INJ 2 MG/ML 2 ML VIAL IV PRN (20:20)
[2020-06-27] MEDS ORDERED: TRIAMCINOLONE ACET 0.5% CR 15 GM TUBE TOP PRN (20:20)
[2020-06-27] MEDS ORDERED: MUPIROCIN 2% OINT 22 GM TUBE EXT PRN (20:28)
[2020-06-27] MEDS ORDERED: ALBUTEROL 0.083% NEBU SOLN 3 ML VIAL INH SCH (21:00)
[2020-06-27] MEDS: levETIRAcetam ORAL SOLN 100MG/ML PO SCH (21:19)
[2020-06-27] MEDS: PANTOprazole 40 MG TAB PO SCH (21:20)
[2020-06-27] MEDS: LORazepam 1 MG TAB PO PRN (22:45)
[2020-06-28] MEDS: ALBUTEROL 0.083% NEBU SOLN 3 ML VIAL INH SCH ×3 (01:52→19:31)
[2020-06-28] MEDS: LACTATED RINGER'S 1,000 ML IV SCH ×3 (01:55→14:06)
[2020-06-28] MEDS: LEVOTHYROXINE SODIUM 175 MCG TABLET PO SCH (05:37)
[2020-06-28 07:22] LABS: Hematocrit (blood only) 33.6 % (42-52); Hemoglobin 10.9 g/dL (14.0-18.0); Lymphocytes # (auto) 0.54 K/uL (1.2-3.4); Lymphocytes % (auto) 11.2 %; Mean Corpuscular Hemoglobin 32.3 pg (25-34); Mean Corpuscular Hgb Conc 32.4 g/dL (32-36); Mean Corpuscular Volume 99.7 fL (80-100); Mean Platelet Volume 10.2 fL (7.4-10.4); Monocytes # (auto) 0.34 K/uL (0.11-0.59); Neutrophils # (auto) 3.95 K/uL (1.4-6.5); Neutrophils % (auto) 81.8 %; Platelet Count 218 K/uL (130-400); RDW Coefficient of Variation 12.9 % (11.5-14.5); Red Blood Count 3.37 M/uL (4.7-6.1); White Blood Count 4.83 K/uL (4.8-10.8)
[2020-06-28 08:01] LABS: BUN Creatinine Ratio 30.2 (10-20); Calcium 9.2 mg/dl (8.5-10.1); Creatinine Clr Calc Pharmacy 80.4 ml/min; Est GFR (African American) 106.3; Est GFR (Non-African American) 91.7; Potassium 4.3 mmol/L (3.5-5.1)
[2020-06-28 08:12] LABS: Thyroid Stimulating Hormone 0.009 uIu/ml (0.300-4.500)
[2020-06-28 08:27] LABS: T4 Free Thyroxine 1.52 ng/dl (0.8-1.6)
--- NOTE | 2020-06-28 09:32 | Gastrointestinal Consultation ---
Date of Consultation June 28, 2020 Assessment & Plan (1) Chronic pulmonary aspiration: Patient with history of dysphagia with chronic aspiration related to previous radiation therapy s/p tonsillar cancer. Maintain NPO Obtain video swallow Dr. Lopez will evaluate patient this afternoon and discuss options including PEG tube placement. History of Present Illness Attending Physician: Serge Schultz History of Present Illness The patient is a pleasant 65-year-old male with past medical history to include vocal cord paralysis, obstructive sleep apnea, laryngeal pharyngeal reflux, macrocytic anemia, hypothyroidism, hypertension, dysphasia, BPH, tonsillar neoplasm status post radiation, stenosis of right internal carotid artery, celiac disease, COPD, bronchiectasis who presented to the emergency department on 06/27/2020 due to worsening shortness of breath over the past week with fevers to 101 via PICC line. With a recent complicated course of ESBL Klebsiella pneumonia having completed IV antibiotics. Patient n.p.o. with admission. Speech consult placed. The patient has been seen by Dr. Lopez previously in the office on 08/22/2019 due to complaints of dysphasia and weight loss. Patient has required esophageal dilatation in the past. 09/16/2019 an EGD was performed that demonstrated friable oropharynx with a second portion of the duodenum being normal. Biopsies were taken to evaluate for celiac disease. Nonbleeding diverticulum found in the gastric fundus. Middle third of the esophagus was normal. Biopsies were also taken at that time. On exam/interview today, the patient is alert pleasant and oriented. He reports that following PICC line antibiotic therapy symptoms of fever and cough with productive sputum began approximately 1 week after treatment. He states symptoms resumed approximately 5 days ago. He reports persistent cough for the last 3 months. He reports multiple episodes where he is required antibiotics thought to be related to aspiration. The patient reports that he has had an 8 to 9 pound weight loss over the last 6 months. He has a history of tonsil cancer in 2002 in which she received chemo and radiation. He did have a PEG tube following his surgery initially. He has discussed with car changer that PEG tube may be required due to weight loss and malnutrition. The patient is unsure if he would like to proceed with a PEG tube. Last video swallow per the patient was performed at [facility] approximately 1.5 years ago prior to right carotid artery stent placement. Demonstrated pooling in his pharynx per patient. He does have a history of vocal cord paralysis. He also reports that his epiglottis does not function properly. Denies any complaints of nausea, vomiting, abdominal pain. He produces no saliva and has trouble swallowing. Allergies Allergy/AdvReac Type Severity Reaction Status Date / Time hydromorphone Allergy Severe CARDIAC/RESPIRATORY Verified 06/27/20 15:40 ARREST tetracycline Allergy Intermediate SORES ON Verified 06/27/20 15:40 SKIN Sulfa (Sulfonamide Allergy Mild Rash Verified 06/27/20 15:40 Antibiotics) amoxicillin [From Augmentin] Allergy Unknown Unverified 06/27/20 15:43 clavulanic acid Allergy Unknown Unverified 06/27/20 15:43 [From Augmentin] Home Medications Home Medications Medication Instructions Recorded Confirmed Type albuterol sulfate 2.5 mg INHALATION BID 09/06/19 06/27/20 History aspirin 81 mg PO QAM 09/06/19 06/27/20 History multivitamin [Multiple Vitamins] 1 tab PO QAM 09/06/19 06/27/20 History mupirocin calcium 1 appln TOPICAL BID PRN 09/06/19 06/27/20 History simvastatin 40 mg PO DAILY 09/06/19 06/27/20 History triamcinolone acetonide 1 appln TOPICAL BID PRN 09/06/19 06/27/20 History levothyroxine 175 mcg tablet 175 mcg PO DAILY #90 tab 03/07/20 06/27/20 Rx levetiracetam 100 mg/mL oral 750 mg PO BID #1419 ml 04/04/20 06/27/20 Rx solution pantoprazole 40 mg tablet,delayed 40 mg PO BID #180 tab 06/12/20 06/27/20 Rx release lorazepam 1 mg tablet 1 mg PO HS PRN #90 tab 06/22/20 06/27/20 Rx Patient History Medical History (Updated 06/28/20 @ 01:07 by Joao Lowe MD) Acute postoperative pain of foot Anemia Anxiety state, unspecified Blurry vision BPH (benign prostatic hyperplasia) Bronchiectasis Cervical spondylosis Chronic obstructive pulmonary disease Chronic obstructive pulmonary disease nebulizer bid Difficulty swallowing Disorder of upper airway Dysphagia Esophageal stenosis GERD (gastroesophageal reflux disease) H/O esophageal reflux Hernia History of cancer tonsil History of cancer tonsil 2000--right side--sx/chemo/radiation History of celiac disease History of malignant neoplasm of oropharynx Hoarseness Hyperlipidemia Hypotension Hypothyroidism Hypothyroidism Laryngopharyngeal reflux Macrocytic anemia Neck pain Obstructive sleep apnea Osteoarthritis Persistent insomnia Pulmonary nodule Rupture of left long head biceps tendon 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 George--on [place], unknown cause Seizure disorder Small cell carcinoma Stenosis of right internal carotid artery Tear of left biceps muscle Tonsillar neoplasm Surgical History H/O vascular surgery attempted to do iliac stent through groin @ [facility] 11/2018--unable to advance and procedure ended--sent to [facility] in 12/2018 for carotid angioplasty and steting History of ankle fusion left foot after ORIF History of bronchoscopy History of carotid angioplasty right side with stent placed @ [facility] 12/2018 History of colonoscopy with polypectomy History of esophagogastroduodenoscopy (EGD) History of fusion of cervical spine normal ROM History of lymph node excision right side at same time as tonsillectomy History of open reduction and internal fixation (ORIF) procedure right foot--pins/plates in place History of open reduction and internal fixation (ORIF) procedure left foot--pins/plate History of right inguinal hernia repair History of tonsillectomy History of tooth extraction Hx of vasectomy Lymphoma of lymph nodes of neck Vocal cord paralysis sx to improve--02/2019 @ [facility] Family History Mother Rheumatoid arthritis Father Heart disease Stroke Brother Non-Hodgkin lymphoma Heart disease Uncle Colorectal cancer Grandfather (Maternal) Myocardial infarction Grandmother (Maternal) Myocardial infarction Other No family history of adverse response to anesthesia Social History Smoking Status: Former smoker Tobacco Type: Cigarettes Second Hand Exposure: Yes ( smokes in garage, sometimes car); Do You Dip or Chew Tobacco: No; Hx Alcohol Use: Yes Alcohol type: beer Hx Substance Use: No Preferred Language: Tajik Communication Ability: Effective Section Gang Worker Required: No Beliefs That Will Affect Care: None marital status: Current Living Situation: Family current occupational status: retired 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 [employer] Other Information That Helps Us Care for You: No Feels Safe at Home: Yes Safety Concerns: Feels Safe At This Time Childhood Exposure to Second-Hand Smoke: No Dental Care, Regularly: No Seatbelt Use: always Review of Systems Constitutional: no problem reported Eyes: no problem reported Ear, Nose, Mouth, Throat: no problem reported Respiratory: as per Subjective / HPI Cardiovascular: no problem reported Gastrointestinal: no problem reported Musculoskeletal: no problem reported Integumentary: no problem reported Neurologic: no problem reported Psychiatric: no problem reported Endocrine: no problem reported Hematologic / Lymphatic: no problem reported Allergy / Immunological: no problem reported Physical Exam Constitutional: WD/WN, vitals as above Eyes: PERRL, conjunctivae normal, anicteric sclerae wears corrective lenses ENMT: external ear and nose normal, oropharynx normal Neck: normal visual inspection Respiratory: Auscultation: + diminished lung sounds and + wheezes (scattered bilaterally ) Cardiovascular: RRR, no murmur, no edema Gastrointestinal (Abdomen): normal bowel sounds, soft, nontender, no hepatosplenomegaly Musculoskeletal: no cyanosis or clubbing, extremities motor strength 5/5 Psychiatric: A+Ox3, euthymic affect Results & Data ([facility]) Vital Signs (Past 12 Hours) Vital Signs Temp Pulse Resp BP Pulse Ox 06/28/20 07:15 36.4 C L 76 16 155/98 H 92 06/28/20 06:59 70 20 93 06/27/20 23:00 36.7 C 65 18 139/85 91 Laboratory Results - last 24 hr 06/27/20 06/27/20 06/27/20 14:28 14:35 14:35 WBC 8.73 RBC 3.56 L Hgb 11.6 L Hct 35.6 L MCV 100.0 MCH 32.6 MCHC 32.6 RDW Std Deviation 48.0 H RDW Coeff of Jordy 13.0 Plt Count 221 MPV 10.3 Immature Gran % (Auto) 0.2 Neut % (Auto) 83.6 Lymph % (Auto) 8.1 [place] % (Auto) 7.7 Eos % (Auto) 0.2 Baso % (Auto) 0.2 Neut # (Auto) 7.29 H Lymph # (Auto) 0.71 L [place] # (Auto) 0.67 H Eos # (Auto) 0.02 Baso # (Auto) 0.02 Immature Gran # (Auto) 0.02 PT 10.9 INR 1.0 APTT 29.2 PTT Ratio 1.0 Sodium Potassium Chloride Carbon Dioxide Anion Gap BUN Creatinine Est Cr Clr Drug Dosing Est GFR ( Amer) Est GFR (Non-Af Amer) BUN/Creatinine Ratio Glucose Lactate 1.1 Calcium Phosphorus Magnesium Total Bilirubin AST ALT Alkaline Phosphatase Troponin I NT-Pro-B Natriuret Pep Total Protein Albumin Globulin Albumin/Globulin Ratio Procalcitonin TSH Free T4 Urine Color Urine Appearance Urine pH Ur Specific Samson Urine Protein Urine Glucose (UA) Urine Ketones Urine Blood Urine Nitrite Urine Bilirubin Urine Urobilinogen Ur Leukocyte Esterase Urine WBC (Auto) Urine RBC (Auto) U Hyaline Cast (Auto) U Epithel Cells (Auto) Urine Bacteria (Auto) COVID-19 Eval Order COVID-19 PCR 06/27/20 06/27/20 06/27/20 14:35 14:35 14:47 WBC RBC Hgb Hct MCV MCH MCHC RDW Std Deviation RDW Coeff of Jordy Plt Count MPV Immature Gran % (Auto) Neut % (Auto) Lymph % (Auto) [place] % (Auto) Eos % (Auto) Baso % (Auto) Neut # (Auto) Lymph # (Auto) [place] # (Auto) Eos # (Auto) Baso # (Auto) Immature Gran # (Auto) PT INR APTT PTT Ratio Sodium 137 Potassium 4.1 Chloride 105 Carbon Dioxide 27 Anion Gap 5.0 BUN 29 H Creatinine 1.29 Est Cr Clr Drug Dosing 51.7 Est GFR ( Amer) 66.5 Est GFR (Non-Af Amer) 57.4 BUN/Creatinine Ratio 22.5 H Glucose 78 Lactate Calcium 9.3 Phosphorus 2.6 Magnesium 2.2 Total Bilirubin 0.4 AST 13 L ALT 17 Alkaline Phosphatase 85 Troponin I < 0.015 NT-Pro-B Natriuret Pep 427 Total Protein 7.9 Albumin 3.0 L Globulin 4.9 H Albumin/Globulin Ratio 0.6 L Procalcitonin 0.45 TSH Free T4 Urine Color Urine Appearance Urine pH Ur Specific Samson Urine Protein Urine Glucose (UA) Urine Ketones Urine Blood Urine Nitrite Urine Bilirubin Urine Urobilinogen Ur Leukocyte Esterase Urine WBC (Auto) Urine RBC (Auto) U Hyaline Cast (Auto) U Epithel Cells (Auto) Urine Bacteria (Auto) COVID-19 Eval Order Covid19 Done at [facility] COVID-19 PCR 06/27/20 06/27/20 06/28/20 14:47 17:40 06:50 WBC 4.83 RBC 3.37 L Hgb 10.9 L Hct 33.6 L MCV 99.7 MCH 32.3 MCHC 32.4 RDW Std Deviation 47.0 H RDW Coeff of Jordy 12.9 Plt Count 218 MPV 10.2 Immature Gran % (Auto) 0.0 Neut % (Auto) 81.8 Lymph % (Auto) 11.2 [place] % (Auto) 7.0 Eos % (Auto) 0.0 Baso % (Auto) 0.0 Neut # (Auto) 3.95 Lymph # (Auto) 0.54 L [place] # (Auto) 0.34 Eos # (Auto) 0.00 Baso # (Auto) 0.00 Immature Gran # (Auto) 0.00 PT INR APTT PTT Ratio Sodium Potassium Chloride Carbon Dioxide Anion Gap BUN Creatinine Est Cr Clr Drug Dosing Est GFR ( Amer) Est GFR (Non-Af Amer) BUN/Creatinine Ratio Glucose Lactate Calcium Phosphorus Magnesium Total Bilirubin AST ALT Alkaline Phosphatase Troponin I NT-Pro-B Natriuret Pep Total Protein Albumin Globulin Albumin/Globulin Ratio Procalcitonin TSH Free T4 Urine Color Dark Yellow Urine Appearance Clear Urine pH 6.5 Ur Specific Samson 1.031 H Urine Protein Trace H Urine Glucose (UA) Negative Urine Ketones 1+ H Urine Blood Negative Urine Nitrite Negative Urine Bilirubin Negative Urine Urobilinogen Negative Ur Leukocyte Esterase Negative Urine WBC (Auto) 1-5 Urine RBC (Auto) 5-10 H U Hyaline Cast (Auto) 5-10 H U Epithel Cells (Auto) 10-20 H Urine Bacteria (Auto) Negative COVID-19 Eval Order COVID-19 PCR NEGATIVE 06/28/20 06/28/20 06:50 06:50 WBC RBC Hgb Hct MCV MCH MCHC RDW Std Deviation RDW Coeff of Jordy Plt Count MPV Immature Gran % (Auto) Neut % (Auto) Lymph % (Auto) [place] % (Auto) Eos % (Auto) Baso % (Auto) Neut # (Auto) Lymph # (Auto) [place] # (Auto) Eos # (Auto) Baso # (Auto) Immature Gran # (Auto) PT INR APTT PTT Ratio Sodium 139 Potassium 4.3 Chloride 106 Carbon Dioxide 26 Anion Gap 7.0 BUN 25 H Creatinine 0.83 D Est Cr Clr Drug Dosing 80.4 Est GFR ( Amer) 106.3 Est GFR (Non-Af Amer) 91.7 BUN/Creatinine Ratio 30.2 H Glucose 130 H Lactate Calcium 9.2 Phosphorus Magnesium Total Bilirubin AST ALT Alkaline Phosphatase Troponin I NT-Pro-B Natriuret Pep Total Protein Albumin Globulin Albumin/Globulin Ratio Procalcitonin 0.35 TSH 0.009 L Free T4 1.52 Urine Color Urine Appearance Urine pH Ur Specific [place] Urine Protein Urine Glucose (UA) Urine Ketones Urine Blood Urine Nitrite Urine Bilirubin Urine Urobilinogen Ur Leukocyte Esterase Urine WBC (Auto) Urine RBC (Auto) U Hyaline Cast (Auto) U Epithel Cells (Auto) Urine Bacteria (Auto) COVID-19 Eval Order COVID-19 PCR
--- NOTE | 2020-06-28 09:45 | Pulmonary Consultation ---
Date of Consultation June 28, 2020 Assessment & Plan (1) COPD (chronic obstructive pulmonary disease): This is a 65-year-old male with a long history of vocal cord paralysis and epiglottal dysfunction. Patient has a 3-day history of fever and shortness of breath. He was admitted 06/27/2020 for further evaluation treatment for question of aspiration pneumonitis. 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 1. Bronchiectasis exacerbation: Patient has known bronchiectasis and uses a pneumatic vest at home. Patient does have history of ESBL in the sputum. Will start the patient on Zosyn. On discharge patient can convert to levofloxacin and continue for total of 10 days of antibiotic therapy. During the patient's inpatient stay, we will use a pneumatic vest, flutter valve, pulmonary toilet. Patient should be on isolation precautions as his most recent ESBL revealed E. coli and Klebsiella pneumoniae 06/01/2020. Does not appear the patient has had work-up for autoimmune disease. There is a pending order and the [employer] system for an alpha 1 antitrypsin level. Will defer work-up to outpatient clinic. 2. COPD: Pulmonary function testing from 02/09/2019 shows obstruction, FEV1 107%, flow volume loop suggestive of possible extrathoracic obstruction. Compared to PFTs from 01/11/2016, FEV1 and FVC appear improved. No indication for steroids as patient does not have any bronchospasm on exam. Antibiotics as above. 3. Dysphagia: Patient has had multiple video swallow swallow studies and they all show aspiration. Patient has known etiology with dysfunctional epiglottis as well as paralyzed vocal cord. Patient does follow with Dr. Lopez from [facility] and they have been discussing PEG tube placement. Patient had repeat video swallow study scheduled today. Will defer balance of work-up to gastroenterology. Continue with aspiration precautions. Head of bed greater than 30 degrees. Out of bed to chair for all meals. Refer to recommendations from speech language pathology. 4. Laryngeal reflux disease: Patient does have hiatal hernia. At one time he was approximately 210 pounds but has lost a significant mount of weight. He continues to struggle with reflux and is on pantoprazole 40 mg p.o. twice daily. He has had EGD with Dr. Lopez in the past. Continue to manage through gastroenterology. Thank you very much for including us in the care of this patient. We will continue to follow along with you. Please refer to Dr. Lunsford's addendum for further recommendations. (2) Chronic pulmonary aspiration: (3) Bronchiectasis: (4) Dysphagia: (5) Laryngopharyngeal reflux: (6) Vocal fold paralysis, right: Supervising Physician Co-Signing Physician Notes Patient seen and examined with Jeremie montague PA-C. I agree with his assessment and plan aside for any additions/exceptions noted: Patient with a known history of bronchiectasis (etiology of bronchiectasis is unclear) and vocal cord paralysis who is followed by [facility] pulmonary group. He recently completed 2 weeks of ertapenem via IV PICC line. He is presenting to the hospital with increasing shortness of breath, fatigue and a low-grade fever over the weekend. COVID-19 testing was negative. Chest x-ray with no si gnificant infiltrates on presentation during this hospital admission. He also notes that he has been losing substantial amount of weight and his appetite is decreased. He does describe aspiration when eating which involves coughing frequently while eating. He is trying to stick to aspiration precautions such as keeping his head of the bed elevated when sleeping and eating in an upright position. Recommend obtaining a sputum culture and treating him with IV Zosyn. I did look at his previous sputum cultures from [facility] which indicated ESBL E. coli with sensitivity to Zosyn and Klebsiella that was pansensitive. Depending on the sputum cultures during this hospital admission, we might change his antibiotics somewhat. Otherwise, depending on his hospital course, I would recommend discharging him on p.o. Levaquin when he is ready to go home. He is going to have a discussion with GI regarding a PEG tube placement given his poor nutrition. Continue PPI twice daily for GERD. He does have a history of a dilated esophagus on his CT chest. History of Present Illness Attending Physician: Serge Schultz History of Present Illness Attending: Dr. Lunsford This is a 65-year-old male with a past medical history of COPD, tonsillar cancer squamous cell, dysphagia, vocal cord paralysis, bronchiectasis, hypothyroidism, sputum ESBL with E. coli and Klebsiella pneumoniae (02/10/2018 to present), pulmonary MRSA (05/06/2017), history of tobacco abuse, history of seizures, carotid artery stenosis. The patient follows with Dr. Beach at [facility]. He reports that over the last several days he has had increasing shortness of breath and fatigue with fever. The patient has a history of head and neck cancer with tonsillar involvement. He has had surgery for that and since that time has had vocal cord paralysis as well as dysfunction of the epiglottis. He has chronic history of aspiration complicated by bronchiectasis. Patient has had multiple CT scans. Images have been requested and are pending. Patient also has history of E. coli ESBL as well as Klebsiella pneumoniae ESBL 06/01/2020 from pulmonary culture. Evidence of Klebsiella pneumoniae goes back to 05/06/2017 as discovered with bronchoscopy. At that time patient also grew out MRSA from the sputum. Patient had a bronchoscopy 05/06/[address] Beach secondary to hemoptysis with abnormal chest x-ray. There is no evidence of endobronchial lesions and no evidence of stigmata. Patient was noted at that time to have vocal cord paralysis and had thick secretions throughout the tracheobronchial tree. Patient has had multiple sputum cultures in addition to bronchoscopy. All were negative for AFB. Patient has never had an alpha-1 antitrypsin level. This was ordered and is a future order in the [facility] system. Patient states that he does have a pneumo vest at home which he uses usually twice a day. When he is more short of breath and feels as though he has more mucus, he uses it up to 4 times daily. He denies any hemoptysis. He has no significant sputum production. He has frequent wet cough but is unable to clear any secretions. Aside from his fever, he has no recent acute complaints. Patient has no recent sick contacts. He has no other symptoms or signs of COVID-19. SARS-CoV-2 RNA test was negative in February 2020. COVID-19 PCR was negative this admission. Allergies Allergy/AdvReac Type Severity Reaction Status Date / Time hydromorphone Allergy Severe CARDIAC/RESPIRATORY Verified 06/27/20 15:40 ARREST tetracycline Allergy Intermediate SORES ON Verified 06/27/20 15:40 SKIN Sulfa (Sulfonamide Allergy Mild Rash Verified 06/27/20 15:40 Antibiotics) amoxicillin [From Augmentin] Allergy Unknown Unverified 06/27/20 15:43 clavulanic acid Allergy Unknown Unverified 06/27/20 15:43 [From Augmentin] Home Medications Home Medications Medication Instructions Recorded Confirmed Type albuterol sulfate 2.5 mg INHALATION BID 09/06/19 06/27/20 History aspirin 81 mg PO QAM 09/06/19 06/27/20 History multivitamin [Multiple Vitamins] 1 tab PO QAM 09/06/19 06/27/20 History mupirocin calcium 1 appln TOPICAL BID PRN 09/06/19 06/27/20 History simvastatin 40 mg PO DAILY 09/06/19 06/27/20 History triamcinolone acetonide 1 appln TOPICAL BID PRN 09/06/19 06/27/20 History levothyroxine 175 mcg tablet 175 mcg PO DAILY #90 tab 03/07/20 06/27/20 Rx levetiracetam 100 mg/mL oral 750 mg PO BID #1419 ml 04/04/20 06/27/20 Rx solution pantoprazole 40 mg tablet,delayed 40 mg PO BID #180 tab 06/12/20 06/27/20 Rx release lorazepam 1 mg tablet 1 mg PO HS PRN #90 tab 06/22/20 06/27/20 Rx Patient History Medical History Acute postoperative pain of foot Anemia Anxiety state, unspecified Blurry vision BPH (benign prostatic hyperplasia) Bronchiectasis Cervical spondylosis Chronic obstructive pulmonary disease Chronic obstructive pulmonary disease nebulizer bid Difficulty swallowing Disorder of upper airway Dysphagia Esophageal stenosis GERD (gastroesophageal reflux disease) H/O esophageal reflux Hernia History of cancer tonsil History of cancer tonsil 2000--right side--sx/chemo/radiation History of celiac disease History of malignant neoplasm of oropharynx Hoarseness Hyperlipidemia Hypotension Hypothyroidism Hypothyroidism Laryngopharyngeal reflux Macrocytic anemia Neck pain Obstructive sleep apnea Osteoarthritis Persistent insomnia Pulmonary nodule Rupture of left long head biceps tendon 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 George--on [place], unknown cause Seizure disorder Small cell carcinoma Stenosis of right internal carotid artery Tear of left biceps muscle Tonsillar neoplasm Surgical History H/O vascular surgery [place]ac [place] [facility] [place]unable to advance and procedure ended--sent to [place] in 12/2018 for carotid angioplasty and steting History of ankle fusion left foot after ORIF History of bronchoscopy History of carotid angioplasty right side with stent placed [place] [facility] [place] History of colonoscopy with polypectomy History of esophagogastroduodenoscopy (EGD) History of fusion of cervical spine normal ROM History of lymph node excision right side at same time as tonsillectomy History of open reduction and internal fixation (ORIF) procedure right foot--pins/plates in place History of open reduction and internal fixation (ORIF) procedure left foot--pins/plate History of right inguinal hernia repair History of tonsillectomy History of tooth extraction Hx of vasectomy Lymphoma of lymph nodes of neck Vocal cord paralysis sx to improve--02/2019 @ [facility] Family History Mother Rheumatoid arthritis Father Heart disease Stroke Brother Non-Hodgkin lymphoma Heart disease Uncle Colorectal cancer Grandfather (Maternal) Myocardial infarction Grandmother (Maternal) Myocardial infarction Other No family history of adverse response to anesthesia Social History Smoking Status: Former smoker Tobacco Type: Cigarettes Second Hand Exposure: Yes ( smokes in garage, sometimes car); Do You Dip or Chew Tobacco: No; Hx Alcohol Use: Yes Alcohol type: beer Hx Substance Use: No Preferred Language: Argentine Communication Ability: Effective Assistant Secretary Required: No Beliefs That Will Affect Care: None marital status: Current Living Situation: Family current occupational status: retired 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 Other Information That Helps Us Care for You: No Feels Safe at Home: Yes Safety Concerns: Feels Safe At This Time Childhood Exposure to Second-Hand Smoke: No Dental Care, Regularly: No Seatbelt Use: always Review of Systems Review of Systems: All systems reviewed & are unremarkable except as noted in HPI & below Physical Exam Physical Exam: GENERAL : No acute distress EYES: No icterus, gaze conjugate NOSE: No evidence of epistaxis MOUTH: No lesions or candidiasis NECK: Supple LUNGS: CTA B/L, no wheezes, rales or rhonchi HEART: Regular, rate controlled ABDOMEN: Soft, NT, ND, BS Present EXTREMITIES: No LE edema, pedal pulses intact NEURO: A&OX3 Results & Data Results & Data ([facility]) Vital Signs (Past 12 Hours) Vital Signs Temp Pulse Resp BP Pulse Ox 06/28/20 07:15 36.4 C L 76 16 155/98 H 92 06/28/20 06:59 70 20 93 06/27/20 23:00 36.7 C 65 18 139/85 91 Laboratory Results 06/28/20 06:50 06/28/20 06:50 INR 1.0 (0.9-1.1) 06/27/20 14:35 Laboratory Tests 06/27/20 06/27/20 14:47 14:47 COVID-19 Eval Order Covid19 Done at [facility] COVID-19 PCR NEGATIVE Diagnostic Findings XR chest 1V portable 06/27/2020 HISTORY: 65 years-old Male SEPSIS acute sepsis COMPARISON: Chest radiograph 10/03/2015 TECHNIQUE: Portable AP view of the chest FINDINGS: Cardiac silhouette is normal. No pneumothorax, pleural effusion or overt pulmonary edema. Mild asymmetric right perihilar opacities. Mild interstitial coarsening. No pneumothorax, pleural effusion, overt pulmonary edema or airspace consolidation typical for pneumonia. Degenerative changes of the shoulders and spine. Cervical spinal fusion hardware. IMPRESSION: Mild asymmetric right perihilar opacities may be secondary to summation density versus subtle airspace disease. Electronically signed by: Jon Fry M.D. 06/27/2020 4:21 PM 02/09/2019 11:42 AM - Interface, Diagnostic Two Component Value Ref Range & Units Status FVC Actual Pre 6.03 L Final FVC Actual Pre %Predict 126 % Final FEV1 Actual Pre 3.84 L Final FEV1 Actual Pre %Predict 107 % Final FEV1/FVC Actual Pre 64 % Final FEF 25-75% Actual Pre 2.10 L/sec Final FEF 25-75% Actual Pre %Predict 74 % Final Narrative Spirometry shows obstruction, FEV1 107%, flow volume loop suggestive of possible extrathoracic obstruction. Compared to PFTs from 01/11/2016, FEV1 and FVC appear improved. Suggest clinical correlation.This interpretation has been electronically signed: Andreea Knutson 02/09/2019 11:40:[address] CHEST WO CONTRAST-06/15/2020 12:08 pm Performed at [facility] HISTORY Bronchiectasis COMPARISON CT CHEST WO CONTRAST dated 02/09/2019; CT THORAX WITHOUT CONTRAST dated 01/21/2018; CT THORAX WITHOUT CONTRAST dated 04/21/2017; CT THORAX WITHOUT CONTRAST dated 01/19/2017; CT THORAX WITHOUT CONTRAST dated 01/21/2013; CT THORAX WITHOUT CONTRAST dated 01/11/2016; FLUORO SWALLOWING FUNCTION W VIDEO CINE dated 12/10/2018; CT THORAX WITHOUT CONTRAST dated 10/25/2013 TECHNIQUE Computed tomography of the chest was performed . Helical axial images were obtained with sagittal and coronal reconstructions. FINDINGS Airways: No intratracheal or intrabronchial lesions. Lungs: Previously described subsegmental areas of consolidation in the lung apices with air bronchograms and retractory fibrosis somehow somewhat more pronounced on the right than on the left are again seen. Underlying bronchiectasis is present diffusely. Large area of tree in bud appearance is seen in the left lower lobe, unchanged from prior study. A small patchy infiltrate is seen in the posterior base. This is less extensive areas are also seen at the right base. On today's study there are several ill-defined areas of increased density seen in the superior segment of the left lower lobe. Areas of scarring are seen diffusely. No emphysema. There is evidence of a well-circumscribed pleural based nodule, adherent to the inferior aspect of the superior left major fissure measuring 4 x 5 mm. This has been present and appears essentially unchanged. . Pleura: No pleural effusions. Heart: Normal cardiac size. No pericardial effusions. Vessels: There is evidence of a left-sided PICC line with its tip in the topography of the superior vena cava. Mediastinum and maame: No evidence of any hilar, mediastinal, or axillary adenopathy. Chest wall and lower neck: No rib fractures. No sternal fractures. Upper abdomen: There is dilatation of the esophagus going all the way down to the esophagogastric junction. Bones: Degenerative changes are seen in the spine IMPRESSION IMPRESSION In this patient with known bronchiectasis, the appearance of the chest is basically unchanged with an extensive area of " tree in bud" configuration in the left lower lobe with ill-defined densities, as well as a smaller area seen in the right base. There is also evidence of a subsegmental areas of consolidation in the lung apices, with air bronchograms, and retractory fibrosis of the hilar regions. This is also unchanged. There is evidence of a well-circumscribed nodule, adherent to the inferior surface of the right major fissure superiorly, measuring by 4 x 5 mm, which has been present previously and is unchanged, dating back 2015. Evidence of a dilated esophagus. Recommendation: GI consultation. 10/23/2014 11:08 PM - Interface, Rad In Performed at [facility] Narrative & Impression INDICATION: Other diseases of lung, not elsewhere classified. COMPARISON: CT thorax without IV contrast 10/25/2013. TECHNIQUE: Additional axial 1.25 mm sections were obtained for high resolution imaging of the lungs. Reconstructed sagittal/coronol imaging. FINDINGS: Heart size appears within normal limits. Severe left coronary artery calcification LAD branch noted, unchanged. CT limited without IV contrast. No gross aortic aneurysm identified. No marked dilatation central pulmonary arteries seen. A few scattered calcified granulomas are seen throughout the lungs. No gross bulky intrathoracic or retrocrural adenopathy is seen. Thyroid appears small, intact. No focal lesion is seen grossly visualized esophagus. Lungs appear clear of active consolidative pneumonia, pleural effusion, or pneumothorax. However, right greater than left medial biapical scarring is seen extending inferiorly into bronchiectasis of the upper lobe segmental/subsegmental airways with peribronchial thickening which appear unchanged most compatible with chronic apical scarring and without adjacent bony destruction seen. Right mainstem bronchus posteriorly shows interval development of oval soft tissue attenuated material intraluminally, approximate 0.7 x 2.5 cm with central Hounsfield units -15 most suggestive of mucous. Moderate right greater than left posterior segmental/subsegmental bronchiectasis is again seen, unchanged. No thickened septal lines to suggest interstitial edema. Visualized upper abdomen appears nonacute without enlarged adrenals seen. Visualized subcutaneous tissues show no focal lesion. Muscular hypertrophy is seen bilaterally suggesting body building or manual labor. Visualized bones appear intact. Hi resolution 1.25 mm sections throughout the lungs show similar findings. Bone windows show no lytic or blastic lesion. IMPRESSION: Limited CT chest study without IV contrast with stable findings as described above. Interval change of mucous in the right mainstem bronchus posteriorly and intraluminally. Clinical correlation recommended. No peripheral mucous plugging identified. Final Dictated: 10/23/14 13:29:00 Ryan Gaffney Signed (Electronic Signature): 10/23/14 23:07:37 Transcribed by: [email or web address] 10/23/2014 2:28 pm PG Care Time/CCT Total # of Minutes Spent Total Time Spent with Patient: Total time spent is greater than 50% in coordination of care (as documented) at patient's floor/unit and/or counseling patient: 60 minutes Coding Level of Care Code 43600 Office/OBS Consult Lvl 5 Diagnoses COPD (chronic obstructive pulmonary disease) J44.9 Chronic pulmonary aspiration T17.908A Bronchiectasis J47.9 Dysphagia R13.10 Laryngopharyngeal reflux K21.9 Vocal fold paralysis, right J38.01
[2020-06-28] MEDS: ASPIRIN 81 MG ECTAB PO SCH (10:04)
[2020-06-28] MEDS: MULTIVITAMIN TAB PO SCH (10:04)
[2020-06-28] MEDS: SIMVASTATIN 40 MG TAB PO SCH (10:05)
[2020-06-28] MEDS: PANTOprazole 40 MG TAB PO SCH (10:05)
[2020-06-28] MEDS: levETIRAcetam ORAL SOLN 100MG/ML PO SCH (10:10)
--- NOTE | 2020-06-28 11:15 | Fluoroscopy Report ---
FL video swallow HISTORY: aspiration and recurrent pneumonia TECHNIQUE: Video fluoroscopic evaluation of swallowing was performed in the AP and lateral projection s by the speech pathology staff. The patient is fed nectar-thick and thin liquid barium, a barium coa dk wafer, and barium pudding. FLUOROSCOPY TIME: 2.4 minutes. NUMBER OF FLUOROSCOPY IMAGES: 0 COMPARISON STUDY: 02/12/2011 FINDINGS: When swallowing thin liquid barium, there was silent aspiration. When swallowing nectar thi ck liquid, there was aspiration as well. When swallowing pudding, the patient was unable to clear fro m the pharynx and the food bolus had to be expectorated. Postsurgical changes are present within the cervical spine. IMPRESSION: 1. Moderate silent aspiration. 2. Please see the speech pathologist report for detailed findings and recommendations. ACT 112: Negative or not required by law. Electronically signed by: Lisandro Glass M.D. 06/28/2020 11:14 AM
[2020-06-28] MEDS ORDERED: PIPERACILL/TAZOBAC CONSULT ACTIVE PRN (11:37)
[2020-06-28] MEDS ORDERED: PIPERACILLIN/TAZOBACTAM 3.375 GM in DEXTROSE 5% 100 ML IV ONE (12:00)
--- NOTE | 2020-06-28 14:11 | Consultation Report ---
DATE OF CONSULTATION: 06/28/2020 Addendum note to the consult by Laverne Maharaj. I examined the patient and obtained his history of recurrent aspiration, malnutrition and a history of tonsillar cancer treated about 20 years ago with radiation and chemo. At that time, he had a gastrostomy tube that when removed developed into an incisional hernia, which was surgically repaired. He is currently having recurrent bouts of aspiration pneumonia and failed a video swallow today. He has been contemplating a gastrostomy tube for a couple of years and currently he is agreeable to proceed when his ticket chopper assembler deems it appropriate for him. On exam, he does have a scar in the left upper abdomen, which is about 2 cm in length. He is quite thin appearing. The plan will be to proceed with a gastrostomy tube once he is appropriately cleared by the ticket chopper assembler. This can be done as an inpatient or an outpatient depending on when that occurs.
[2020-06-28] MEDS: ALBUTEROL 0.083% NEBU SOLN 3 ML VIAL NEB PRN (15:45)
[2020-06-28] MEDS ORDERED: TPN/PPN CONSULT PHARMACY PRN (16:39)
[2020-06-28] MEDS: levETIRAcetam 750 MG in 0.9 % SODIUM CHLORIDE 100 ML IV SCH (17:48)
[2020-06-28] MEDS: D5W AND LACTATED RINGERS 1,000 ML IV SCH (17:48)
[2020-06-28] MEDS: PIPERACILLIN/TAZOBACTAM 3.375 GM in DEXTROSE 5% 100 ML IV SCH (19:06)
[2020-06-28] MEDS ORDERED: GLUCOSE 10 TABS/TUBE PO PRN (20:24)
[2020-06-28] MEDS ORDERED: CARBOHYDRATES FOR HYPOGLYCEMIA PO PRN (20:24)
[2020-06-28] MEDS ORDERED: DEXTROSE 50% 50 ML SYRINGE IV PRN (20:24)
[2020-06-28] MEDS ORDERED: GLUCOSE 40% GEL 15 GM TUBE PO PRN (20:24)
[2020-06-28] MEDS ORDERED: GLUCAGON FOR INJ 1 MG VIAL SQ PRN (20:24)
[2020-06-28] MEDS ORDERED: INSULIN ASPART 100 UNITS/ML 3 ML PEN SC SCH (21:00)
[2020-06-28] MEDS ORDERED: Nursing to Pharmacy Communication SCH (21:00)
[2020-06-28] MEDS: guaiFENesin 600 MG TABCR PO SCH (21:01)
[2020-06-28] MEDS: PANTOprazole 40 MG in SYRINGE 0 ML IV SCH (21:33)
--- NOTE | 2020-06-28 22:37 | Hospitalist Progress Note ---
Date of Service June 28, 2020 Assessment & Plan (1) Aspiration pneumonitis: vs. PNA. Ertapenem given in ER. No definitive PNA symptoms from history, imaging or exam given chronic bronchiectasis changes. Procalcitonin negative. will continue to treat with antibiotics. Patient failed swallow eval (2) Pneumonia: Ertapenem given in ER for the antibiotics deferred as above. (3) COPD (chronic obstructive pulmonary disease): Continue duo nebs. On no maintenance inhalers for this. Unclear if true diagnosis. (4) Bronchiectasis: Consult pulmonology (5) Hypoxia: No oxygen requirement at home. Likely secondary to aspiration pneumonitis. Aim O2 sats > 90% (6) Esophageal stenosis: Notable history of this. No stenosis noted on recent EGD. will require gastrostomy tube, however will need to treat Asp. pneumonia first. (7) Hypothyroidism: Repeat TSH with a.m. labs continue levothyroxine 175 mcg p.o. daily (8) Laryngopharyngeal reflux: Continue pantoprazole 40 mg p.o. twice daily I suspect this caused the loss of his bronchiectasis as he continues to lie flat at night Elevate head of bed greater than 30 degrees at all times (9) History of celiac disease: Notable history of this. Unclear how this was diagnosed. He does not appear to be on a gluten-free diet at present. (10) Chronic pulmonary aspiration: (11) BPH (benign prostatic hyperplasia): Notable history of this but was taken off medication I understand due to hypotension. Given ongoing symptoms if blood pressure stable will consider adding tamsulosin. (12) Anxiety state, unspecified: Continue his usual Lorazepam 1 mg p.o. at bedtime as needed Admission and Anticipated Discharge Date Admission Date: June 27, 2020 Charly López's main complaint is that he is hungry. He reports he has lost weight anc wants to eat. He refuses a NG tube and wants PPN. Review of Systems Review of Systems: All systems reviewed & are unremarkable except as noted in HPI & below Physical Exam Physical Exam: Constitutional: well developed and + frail appearing; + not well nourished and no acute distress Eyes: PERRL, conjunctivae normal, anicteric sclerae ENMT: Mouth: + dry oral mucous membranes (Very dry) Neck: trachea midline Respiratory: Auscultation: rhonchi (Bilateral coarse upper airway sounds) Cardiovascular: RRR, no murmur, no edema Gastrointestinal (Abdomen): normal bowel sounds, soft, nontender, no h epatosplenomegaly Musculoskeletal: Generalized chronic muscle wasting Skin: no rashes, warm and dry Right neck chronic radiation changes Neurologic: moves all extremities and awake; no focal motor deficits and not confused Psychiatric: A+Ox3, euthymic affect Genitourinary: no CVA tenderness Results & Data Results & Data ([facility]) Vital Signs (Past 12 Hours) Vital Signs Temp Pulse Resp BP Pulse Ox 06/28/20 19:32 61 18 92 06/28/20 15:45 66 14 92 06/28/20 15:44 36.6 C 66 16 135/87 92 PG Care Time/CCT Total # of Minutes Spent Total Time Spent with Patient: Total time spent is greater than 50% in coordination of care (as documented) at patient's floor/unit and/or counseling patient: Coding Level of Care Code 30859 Subseq Hosp Care Lvl 3 Diagnoses Aspiration pneumonitis J69.0 Pneumonia J18.9 Laterality: bilateral Lung location: unspecified part of lung Pneumonia type: due to unspecified organism COPD (chronic obstructive pulmonary disease) J44.9 Bronchiectasis J47.9 Hypoxia R09.02 Esophageal stenosis K22.2 Hypothyroidism E03.9 Laryngopharyngeal reflux K21.9 History of celiac disease Z87.19 Chronic pulmonary aspiration T17.908A BPH (benign prostatic hyperplasia) N40.0 Anxiety state, unspecified F41.1 Time Spent (min) 35 (1) Pneumonia Laterality: bilateral Lung location: unspecified part of lung Pneumonia type: due to unspecified organism Qualified Code(s): J18.9 - Pneumonia, unspecified organism
[2020-06-28] MEDS: LORazepam 1 MG TAB PO PRN (23:31)
[2020-06-29] MEDS: INSULIN ASPART 100 UNITS/ML 3 ML PEN SC SCH ×4 (00:10→18:47)
[2020-06-29] MEDS: D5W AND LACTATED RINGERS 1,000 ML IV SCH ×3 (00:41→13:43)
[2020-06-29] MEDS: PIPERACILLIN/TAZOBACTAM 3.375 GM in DEXTROSE 5% 100 ML IV SCH ×3 (00:45→18:31)
[2020-06-29] MEDS: levETIRAcetam 750 MG in 0.9 % SODIUM CHLORIDE 100 ML IV SCH ×2 (05:29→18:40)
[2020-06-29] MEDS: LEVOTHYROXINE SODIUM 175 MCG TABLET PO SCH (05:31)
[2020-06-29] MEDS: ALBUTEROL 0.083% NEBU SOLN 3 ML VIAL INH SCH ×2 (07:11→18:52)
[2020-06-29] MEDS: ASPIRIN 81 MG ECTAB PO SCH (07:43)
[2020-06-29] MEDS: MULTIVITAMIN TAB PO SCH (07:44)
[2020-06-29] MEDS: guaiFENesin 600 MG TABCR PO SCH ×2 (07:44→23:40)
[2020-06-29] MEDS: SIMVASTATIN 40 MG TAB PO SCH (07:44)
[2020-06-29] MEDS ORDERED: TPN/PPN CONSULT PHARMACY STA (07:48)
[2020-06-29] MEDS: PANTOprazole 40 MG in SYRINGE 0 ML IV SCH ×2 (08:03→22:58)
[2020-06-29 08:53] LABS: BUN Creatinine Ratio 19.2 (10-20); Calcium 8.8 mg/dl (8.5-10.1); Est GFR (African American) 97.5; Est GFR (Non-African American) 84.2; Phosphorus 3.3 mg/dl (2.5-4.9); Potassium 3.4 mmol/L (3.5-5.1)
--- NOTE | 2020-06-29 09:21 | Gastroenterology Progress Note ---
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 Has had gastrostomy tube previously. Unfortunately having recurrent bouts of aspiration pneumonia and has failed video swallow. Maintain NPO Has contemplated gastrostomy tube for several years. He is agreeable to proceeding with gastrostomy tube. Spoke to Dr. Lunsford of the pulmonary service he reports that he feels that the patient be cleared for gastrostomy tube from a pulmonary perspective. Per Dr. Lopez this can be done as inpatient or outpatient. Please refer to supervising physician addendum for further recommendations. Admission and Anticipated Discharge Date Admission Date: June 27, 2020 Subjective The patient is a pleasant 65-year-old male with past medical history to include vocal cord paralysis, obstructive sleep apnea, laryngeal pharyngeal reflux, macrocytic anemia, hypothyroidism, hypertension, dysphasia, BPH, tonsillar neoplasm status post radiation, stenosis of right internal carotid artery, celiac disease, COPD, bronchiectasis, and recent ESBL Klebsiella pneumonia. Video swallow was obtained on 06/28/2020 and demonstrated moderate silent aspiration. Spoke to speech therapist following testing and patient demonstrated significant silent aspiration requiring prompting to clear. The patient has been contemplating a gastrostomy tube for several years and reports this morning that he is agreeable to proceeding with gastrostomy tube. On exam/interview today, the patient reports that he is doing well. Any nausea, vomiting, abdominal pain. Denies any GI complaints. He is on room air. Review of Systems Constitutional: no problem reported Eyes: no problem reported Ear, Nose, Mouth, Throat: no problem reported Respiratory: as per Subjective / HPI Cardiovascular: no problem reported Gastrointestinal: no problem reported Musculoskeletal: no problem reported Integumentary: no problem reported Neurologic: no problem reported Psychiatric: no problem reported Endocrine: no problem reported Hematologic / Lymphatic: no problem reported Allergy / Immunological: no problem reported Physical Exam Constitutional: WD/WN, vitals as above ENMT: external ear and nose normal, oropharynx normal Neck: normal visual inspection Respiratory: Auscultation: + diminished lung sounds and + wheezes (scattered bilaterally ) Cardiovascular: RRR, no murmur, no edema Gastrointestinal (Abdomen): normal bowel sounds, soft, nontender, no hepatosplenomegaly Skin: no rashes, warm and dry Neurologic: PERRL, EOMI, accommodation nl, no face palsy, no dysarthria Psychiatric: A+Ox3, euthymic affect Results & Data ([facility]) Vital Signs (Past 12 Hours) Vital Signs Temp Pulse Resp BP Pulse Ox 06/29/20 07:34 36.6 C 56 L 18 104/63 93 06/29/20 07:16 63 16 93 06/28/20 23:00 36.5 C 65 18 142/85 H 93 Laboratory Results - last 24 hr 06/28/20 06/28/20 06/28/20 18:01 18:02 18:03 Sodium Potassium Chloride Carbon Dioxide Anion Gap BUN Creatinine Est Cr Clr Drug Dosing Est GFR ( Amer) Est GFR (Non-Af Amer) BUN/Creatinine Ratio Glucose POC Glucose 301 H* 166 H 179 H Calcium Phosphorus Magnesium Triglycerides 06/29/20 06/29/20 06/29/20 00:06 05:55 08:07 Sodium 141 Potassium 3.4 L D Chloride 108 H Carbon Dioxide 28 Anion Gap 5.0 BUN 18 Creatinine 0.94 Est Cr Clr Drug Dosing 71.0 Est GFR ( Amer) 97.5 Est GFR (Non-Af Amer) 84.2 BUN/Creatinine Ratio 19.2 Glucose 102 H POC Glucose 123 H 137 H Calcium 8.8 Phosphorus 3.3 Magnesium 2.0 Triglycerides 58
--- NOTE | 2020-06-29 14:13 | Pulmonology Progress Note ---
Date of Service June 29, 2020 Assessment & Plan (1) Bronchiectasis: 65-year-old male with a past medical history of chronic pulmonary aspiration, bronchiectasis, vocal cord paralysis and epiglottic dysfunction, head and neck cancer with tonsillar involvement status post resection who presented to the hospital with worsening shortness of breath. Patient is chronically malnourished and is under the care of a [facility] enroute controller who recommended G-tube placement for improving his nutritional status and reducing the risk of aspiration. He is set to undergo G-tube placement today. He is being treated for mild bronchiectasis exacerbation. He is currently on Zosyn given his history of ESBL E. coli and pansensitive Klebsiella. Repeat sputum cultures are pending. When he is deemed ready for discharge by his primary team, I recommend a total of 10 days of antibiotics w hich can be transitioned to p.o. Levaquin. Continue flutter valve therapy, vest therapy 3 times a day, nebs twice daily. PFTs from 2019 revealed FEV1 of 107% predicted. I do not think that he has COPD. Continue PPI for history of laryngeal reflux. At this time, pulmonary will sign off. Thank you for the consult. We would be happy to see this patient as an outpatient if he decides to transition his pulmonary care to [facility] physician group. (2) Pneumonia: Laterality: bilateral Lung location: unspecified part of lung Pneumonia type: due to unspecified organism Qualified Code(s): J18.9 - Pneumonia, unspecified organism (3) Hypoxia: (4) Aspiration pneumonitis: (5) Bronchiectasis: Admission and Anticipated Discharge Date Admission Date: June 27, 2020 Subjective Patient feeling much better today. No fevers overnight. He is eager to have his G-tube placed. He denies any hemoptysis. No significant cough today. No nausea or vomiting. Review of Systems Review of Systems: All systems reviewed & are unremarkable except as noted in HPI & below Physical Exam Constitutional: + thin; not ill appearing and not in distress Eyes: PERRL, conjunctivae normal, anicteric sclerae ENMT: external ear and nose normal, oropharynx normal Neck: normal visual inspection Respiratory: normal respiratory effort, lungs clear to auscultation Cardiovascular: RRR, no murmur, no edema Gastrointestinal (Abdomen): normal bowel sounds, soft, nontender, no hepatosplenomegaly Musculoskeletal: no cyanosis or clubbing, extremities motor strength 5/5 Skin: no rashes, warm and dry Neurologic: PERRL, EOMI, accommodation nl, no face palsy, no dysarthria Psychiatric: A+Ox3, euthymic affect Results & Data Results & Data ([facility]) Vital Signs (Past 12 Hours) Vital Signs Temp Pulse Resp BP Pulse Ox 06/29/20 07:34 97.9 F 56 L 18 104/63 93 06/29/20 07:16 63 16 93 I reviewed vital signs, labs and imaging PG Care Time/CCT Total # of Minutes Spent Total Time Spent with Patient: Total time spent is greater than 50% in coordination of care (as documented) at patient's floor/unit and/or counseling patient: Coding Level of Care Code 58430 Subseq Hosp Care Lvl 2 Diagnoses Bronchiectasis J47.9 Pneumonia J18.9 Laterality: bilateral Lung location: unspecified part of lung Pneumonia type: due to unspecified organism Hypoxia R09.02 Aspiration pneumonitis J69.0 Bronchiectasis J47.9
--- NOTE | 2020-06-29 15:09 | History & Physical Report ---
Date of Service June 29, 2020 Assessment & Plan Admission and Anticipated Discharge Date Admission Date: June 27, 2020 History of Present Illness Chief Complaint: Inability to eat, aspiration Primary Care Provider: Umesh Mcintyre DO For PEG tube placement Allergies Allergy/AdvReac Type Severity Reaction Status Date / Time hydromorphone Allergy Severe CARDIAC/RESPIRATORY Verified 06/27/20 15:40 ARREST tetracycline Allergy Intermediate SORES ON Verified 06/27/20 15:40 SKIN Sulfa (Sulfonamide Allergy Mild Rash Verified 06/27/20 15:40 Antibiotics) amoxicillin [From Augmentin] Allergy Unknown Unverified 06/27/20 15:43 clavulanic acid Allergy Unknown Unverified 06/27/20 15:43 [From Augmentin] Home Medications Home Medications Medication Instructions Recorded Confirmed Type albuterol sulfate 2.5 mg INHALATION BID 09/06/19 06/27/20 History aspirin 81 mg PO QAM 09/06/19 06/27/20 History multivitamin [Multiple Vitamins] 1 tab PO QAM 09/06/19 06/27/20 History mupirocin calcium 1 appln TOPICAL BID PRN 09/06/19 06/27/20 History simvastatin 40 mg PO DAILY 09/06/19 06/27/20 History triamcinolone acetonide 1 appln TOPICAL BID PRN 09/06/19 06/27/20 History levothyroxine 175 mcg tablet 175 mcg PO DAILY #90 tab 03/07/20 06/27/20 Rx levetiracetam 100 mg/mL oral 750 mg PO BID #1419 ml 04/04/20 06/27/20 Rx solution pantoprazole 40 mg tablet,delayed 40 mg PO BID #180 tab 06/12/20 06/27/20 Rx release lorazepam 1 mg tablet 1 mg PO HS PRN #90 tab 06/22/20 06/27/20 Rx Past Med/Surg History Medical History Acute postoperative pain of foot Anemia Anxiety state, unspecified Blurry vision BPH (benign prostatic hyperplasia) Bronchiectasis Cervical spondylosis Chronic obstructive pulmonary disease Chronic obstructive pulmonary disease nebulizer bid Difficulty swallowing Disorder of upper airway Dysphagia Esophageal stenosis GERD (gastroesophageal reflux disease) H/O esophageal reflux Hernia History of cancer tonsil History of cancer tonsil 2000--right side--sx/chemo/radiation History of celiac disease History of malignant neoplasm of oropharynx Hoarseness Hyperlipidemia Hypotension Hypothyroidism Hypothyroidism Laryngopharyngeal reflux Macrocytic anemia Neck pain Obstructive sleep apnea Osteoarthritis Persistent insomnia Pulmonary nodule Rupture of left long head biceps tendon 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 George--on Deep[place]ge[place]a, unknown cause Seizure disorder Small cell carcinoma Stenosis of right internal carotid artery Tear of left biceps muscle Tonsillar neoplasm Surgical History H/O vascular surgery [place] [facility] [place]unable to advance and procedure ended--sent to [place] in 12/2018 for carotid angioplasty and steting History of ankle fusion left foot after ORIF History of bronchoscopy History of carotid angioplasty right side with stent placed [place] [facility] [place] History of colonoscopy with polypectomy History of esophagogastroduodenoscopy (EGD) History of fusion of cervical spine normal ROM History of lymph node excision right side at same time as tonsillectomy History of open reduction and internal fixation (ORIF) procedure right foot--pins/plates in place History of open reduction and internal fixation (ORIF) procedure left foot--pins/plate History of right inguinal hernia repair History of tonsillectomy History of tooth extraction Hx of vasectomy Lymphoma of lymph nodes of neck Vocal cord paralysis sx to improve--02/2019 @ [facility] Family History Mother Rheumatoid arthritis Father Heart disease Stroke Brother Non-Hodgkin lymphoma Heart disease Uncle Colorectal cancer Grandfather (Maternal) Myocardial infarction Grandmother (Maternal) Myocardial infarction Other No family history of adverse response to anesthesia Social History Smoking Status: Former smoker Tobacco Type: Cigarettes Second Hand Exposure: Yes ( smokes in garage, sometimes car); Do You Dip or Chew Tobacco: No; Hx Alcohol Use: Yes Alcohol type: beer Hx Substance Use: No Preferred Language: Bangladeshi Communication Ability: Effective Hot Tar Roofer Required: No Beliefs That Will Affect Care: None marital status: Current Living Situation: Family current occupational status: retired 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 [employer] Other Information That Helps Us Care for You: No Feels Safe at Home: Yes Safety Concerns: Feels Safe At This Time Childhood Exposure to Second-Hand Smoke: No Dental Care, Regularly: No Seatbelt Use: always Physical Exam Constitutional: + thin Respiratory: able to speak in complete sentences Cardiovascular: Rate/Rhythm: regular rate and regular rhythm Gastrointestinal (Abdomen): scar in LUQ Results & Data ([facility]) Vital Signs (Past 12 Hours) Vital Signs Temp Pulse Resp BP Pulse Ox 06/29/20 07:34 36.6 C 56 L 18 104/63 93 06/29/20 07:16 63 16 93 Code Status & VTE Plan VTE Prophylaxis Plan VTE Prophylaxis will be ordered: Yes
[2020-06-29] MEDS ORDERED: SODIUM CHLORIDE 0.9% 1000ML 1,000 ML IV SCH (15:15)
[2020-06-29] MEDS ORDERED: fentaNYL citrate 100 MCG/2 ML VIAL ONE (15:21)
[2020-06-29] MEDS ORDERED: MIDAZOLAM HCL 1 MG/ML 2ML VIAL ONE (15:30)
[2020-06-29] MEDS ORDERED: PROPOFOL IV EMULSION 10 MG/ML 20 ML VIAL IV ONE ×2 (15:32→16:12)
[2020-06-29] MEDS ORDERED: LIDOCAINE HCL 2% 2 ML VIAL/AMP(20MG/ML) INFIL ONE (15:32)
[2020-06-29] MEDS ORDERED: ATROPINE SULFATE 0.1 MG/ML 10ML SYR IV PRN (15:37)
[2020-06-29] MEDS ORDERED: ePHEDrine sulfate 50 MG/ML AMP IV PRN (15:37)
[2020-06-29] MEDS ORDERED: fentaNYL citrate 100 MCG/2 ML VIAL IV PRN (15:37)
[2020-06-29] MEDS ORDERED: ONDANSETRON INJ 2 MG/ML 2 ML VIAL IV PRN (15:37)
--- NOTE | 2020-06-29 15:37 | Anesthesiology Consultation ---
Date of Service June 29, 2020 Assessment & Plan (1) Encounter for pre-operative examination: Chart Review Chart Review: Acceptable Risk for Surgery Consults Requested none ASA ASA4 Proposed Anesthesia Anesthesia Type: MAC Risk / Benefits Reviewed With: PT / POA / Parent / Guardian, Accepts Plan and Informed Consent Obtained History Surgery Operation Date: 06/29/20 08:30 Proposed Procedures p Esophagogastroduodenoscopy with Gastric Tube Placement - Matthew Lopez Height/Weight Height: 6 ft Weight: 64.9 kg Allergies Allergy/AdvReac Type Severity Reaction Status Date / Time hydromorphone Allergy Severe CARDIAC/RESPIRATORY Verified 06/29/20 15:29 ARREST tetracycline Allergy Intermediate SORES ON Verified 06/29/20 15:29 SKIN Sulfa (Sulfonamide Allergy Mild Rash Verified 06/29/20 15:29 Antibiotics) amoxicillin [From Augmentin] Allergy Unknown Verified 06/29/20 15:29 clavulanic acid Allergy Unknown Verified 06/29/20 15:29 [From Augmentin] Medications Home Medications Medication Instructions Recorded Confirmed Last Taken albuterol sulfate 2.5 mg INHALATION BID 09/06/19 06/27/20 09/16/19 08:00 aspirin 81 mg PO QAM 09/06/19 06/27/20 06/27/20 multivitamin [Multiple Vitamins] 1 tab PO QAM 09/06/19 06/27/20 06/27/20 mupirocin calcium 1 appln TOPICAL BID PRN 09/06/19 06/27/20 09/11/19 simvastatin 40 mg PO DAILY 09/06/19 06/27/20 09/16/19 08:00 triamcinolone acetonide 1 appln TOPICAL BID PRN 09/06/19 06/27/20 09/11/19 levothyroxine 175 mcg tablet 175 mcg PO DAILY #90 tab 03/07/20 06/27/20 06/27/20 levetiracetam 100 mg/mL oral 750 mg PO BID #1419 ml 04/04/20 06/27/20 06/27/20 solution pantoprazole 40 mg tablet,delayed 40 mg PO BID #180 tab 06/12/20 06/27/20 06/27/20 release lorazepam 1 mg tablet 1 mg PO HS PRN #90 tab 06/22/20 06/27/20 Unknown Active Medications Generic Name Dose Route Start Last Admin Trade Name Freq PRN Reason Stop Dose Admin Albuterol 2.5 mg 06/27/20 21:00 06/29/20 07:11 Albuterol 0.083% Nebu Soln 3 Ml Vial INH 07/27/20 20:59 2.5 mg BIDR VALENTE Administration Albuterol 2.5 mg 06/28/20 15:42 06/28/20 15:45 Albuterol 0.083% Nebu Soln 3 Ml Vial NEB 07/28/20 15:41 2.5 mg Q4 PRN Administration Shortness Of Breath Or Wheezing Aspirin 81 mg 06/28/20 09:00 06/29/20 07:43 Aspirin 81 Mg Ectab PO 07/28/20 08:59 Not Given QAM VALENTE Guaifenesin 600 mg 06/28/20 21:00 06/29/20 07:44 Guaifenesin 600 Mg Tabcr PO 07/28/20 20:59 Not Given Q12 VALENTE Piperacillin Sod/Tazobactam 115 mls @ 28.75 mls/hr 06/28/20 18:00 06/29/20 13:47 Sod 3.375 gm/ Dextrose IV 07/05/20 17:59 Infused Q8H VALENTE Infusion Protocol Levetiracetam 750 mg/ Sodium 107.5 mls @ 420 mls/hr 06/28/20 18:00 06/29/20 05:45 Chloride IV 07/28/20 17:59 Infused Q12H VALENTE Infusion Dextrose/Lactated Ringer's 1,000 mls @ 150 mls/hr 06/28/20 17:00 06/29/20 13:43 D5w And Lactated Ringers IV 07/28/20 16:59 150 mls/hr .Q6H40M VALENTE Administration Pantoprazole Sodium 40 mg/ 10 mls @ 5 mls/min 06/28/20 21:00 06/29/20 08:03 Syringe IV 07/28/20 20:59 5 mls/min BID VALENTE Administration Insulin Aspart 0 units 06/29/20 00:00 06/29/20 12:25 Insulin Aspart 100 Units/Ml 3 Ml Pen SC 07/29/20 00:00 Not Given Q6 VALENTE Levothyroxine Sodium 175 mcg 06/28/20 06:30 06/29/20 05:31 Levothyroxine Sodium 175 Mcg Tablet PO 07/28/20 06:29 175 mcg DAILYBB VALENTE Administration Lorazepam 1 mg 06/27/20 20:20 06/28/20 23:31 Lorazepam 1 Mg Tab PO 07/27/20 20:19 1 mg HS PRN Administration insomnia Multivitamins 1 tab 06/28/20 09:00 06/29/20 07:44 Multivitamin Tab PO 07/28/20 08:59 Not Given QAM VALENTE Pantoprazole Sodium 40 mg 06/27/20 21:00 06/28/20 10:05 Pantoprazole 40 Mg Tab PO 07/27/20 20:59 Not Given BID VALENTE Simvastatin 40 mg 06/28/20 09:00 06/29/20 07:44 Simvastatin 40 Mg Tab PO 07/28/20 08:59 Not Given DAILY VALENTE NPO Date Last Intake of Fluids: 06/26/20 Time Last Intake of Fluids: 13:00 Date Last Intake of Solids: 06/26/20 Time Last Intake of Solids: 13:00 Past Medical History Medical History Acute postoperative pain of foot Anemia Anxiety state, unspecified Blurry vision BPH (benign prostatic hyperplasia) Bronchiectasis Cervical spondylosis Chronic obstructive pulmonary disease Chronic obstructive pulmonary disease nebulizer bid Difficulty swallowing Disorder of upper airway Dysphagia Esophageal stenosis GERD (gastroesophageal reflux disease) H/O esophageal reflux Hernia History of cancer tonsil History of cancer tonsil 2000--right side--sx/chemo/radiation History of celiac disease History of malignant neoplasm of oropharynx Hoarseness Hyperlipidemia Hypotension Hypothyroidism Hypothyroidism Laryngopharyngeal reflux Macrocytic anemia Neck pain Obstructive sleep apnea Osteoarthritis Persistent insomnia Pulmonary nodule Rupture of left long head biceps tendon 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 George--on Keppra, unknown cause Seizure disorder Small cell carcinoma Stenosis of right internal carotid artery Tear of left biceps muscle Tonsillar neoplasm Exercise / Class Metabolic Activity III < 4 Walking/Shop/Light housework Past Family History Family History Mother Rheumatoid arthritis Father Heart disease Stroke Brother Non-Hodgkin lymphoma Heart disease Uncle Colorectal cancer Grandfather (Maternal) Myocardial infarction Grandmother (Maternal) Myocardial infarction Other No family history of adverse response to anesthesia Past Surgical History Surgical History H/O vascular surgery attempted to do iliac stent through groin @ [facility] [place] 11/2018--unable to advance and procedure ended--sent to [facility] in 12/2018 for carotid angioplasty and steting History of ankle fusion left foot after ORIF History of bronchoscopy History of carotid angioplasty right side with stent placed @ [facility] [place] 12/2018 History of colonoscopy with polypectomy History of esophagogastroduodenoscopy (EGD) History of fusion of cervical spine normal ROM History of lymph node excision right side at same time as tonsillectomy History of open reduction and internal fixation (ORIF) procedure right foot--pins/plates in place History of open reduction and internal fixation (ORIF) procedure left foot--pins/plate History of right inguinal hernia repair History of tonsillectomy History of tooth extraction Hx of vasectomy Lymphoma of lymph nodes of neck Vocal cord paralysis sx to improve--02/2019 @ [facility] Past Anesthesia History No Hx of Anesthesia Complications and No Family Hx of Anesthesia Complications History of PONV No Hx of PONV and No Hx of Motion Sickness Social History Smoking Status: Former smoker Do You Dip or Chew Tobacco: No Hx Alcohol Use: Yes Alcohol type: beer alcohol intake frequency: a few times a month Hx Substance Use: No substance use type: does not use Physical Exam Vital Signs Last Vital Signs Temp 98.1 F 06/29/20 15:18 Pulse 68 06/29/20 15:18 Resp 19 06/29/20 15:18 BP 201/116 H 06/29/20 15:18 Pulse Ox 96 06/29/20 15:18 ENMT Mouth: no dentition abnormality Thyromental Distance: > or= 3.5 Finger Breadths Mallampati Class: II Neck normal visual inspection Respiratory normal respiratory effort Auscultation: lungs clear to auscultation bilaterally Cardiovascular Rate/Rhythm: regular rate and regular rhythm Testing Laboratory Results 06/28/20 06:50 06/29/20 08:07 PT 10.9 Seconds (9.0-12.0) 06/27/20 14:35 INR 1.0 (0.9-1.1) 06/27/20 14:35 APTT 29.2 Seconds (21.0-31.0) 06/27/20 14:35 Urine Color Dark Yellow 06/27/20 17:40 Urine Appearance Clear (Clear) 06/27/20 17:40 Urine pH 6.5 (4.5-7.5) 06/27/20 17:40 Ur Specific Howell 1.031 (1.000-1.030) H 06/27/20 17:40 Urine Protein Trace (Negative) H 06/27/20 17:40 Urine Glucose (UA) Negative (Negative) 06/27/20 17:40 Urine Ketones 1+ (Negative) H 06/27/20 17:40 Urine Nitrite Negative (Negative) 06/27/20 17:40 Ur Leukocyte Esterase Negative (Negative) 06/27/20 17:40 Urine WBC (Auto) 1-5 /hpf (0-5) 06/27/20 17:40 Urine RBC (Auto) 5-10 /hpf (0-4) H 06/27/20 17:40 U Hyaline Cast (Auto) 5-10 /lpf (0-5) H 06/27/20 17:40 U Epithel Cells (Auto) 10-20 /lpf (0-5) H 06/27/20 17:40 Urine Bacteria (Auto) Negative (Negative) 06/27/20 17:40 06/27/20 14:28 Aerobic Blood Culture - Preliminary Blood No growth in Aerobic bottle after 48 hours. Anaerobic Blood Culture - Preliminary No growth in Anaerobic bottle after 48 hours. 06/28/20 20:52 Gram Stain - Final Sputum, Expectorated Sputum Culture - Preliminary Moderate normal sharmaine present, final report to follow. 06/27/20 14:36 Aerobic Blood Culture - Preliminary Blood No growth in Aerobic bottle after 24 hours. Anaerobic Blood Culture - Preliminary No growth in Anaerobic bottle after 24 hours. 06/29/20 06/29/20 11:34 05:55 POC Glucose 111 H 137 H
--- NOTE | 2020-06-29 16:14 | GI REPORT ---
Addendum Number: 1 Addendum Date: 07/09/2020 3:01:49 PM A 20 Macedonian PEG tube was placed during the procedure without complication. Matthew Lopez M.D. Matthew Lopez MD 07/09/2020 3:02:50 PM This report has been signed electronically. Patient Name: Zander Aguilar Procedure Date: 06/29/2020 3:24 PM Date of : 1955 Admit Type: Inpatient Age: 65 Gender: Male Attending MD: Matthew Lopez MD Procedure: Upper GI endoscopy Providers: Matthew Lopez MD Referring MD: [place]in [place] Indications: Failure to thrive Medicines: General Anesthesia Complications: No immediate complications. Estimated Blood Loss: Estimated blood loss: none. Procedure: Pre-Anesthesia Assessment: - Prior to the procedure, a History and Physical was performed, and patient medications, allergies and sensitivities were reviewed. The patient's tolerance of previous anesthesia was reviewed. - The risks and benefits of the procedure and the sedation options and risks were discussed with the patient. All questions were answered and informed consent was obtained. - Prior to the procedure, a History and Physical was performed, and patient medications, allergies and sensitivities were reviewed. The patient's tolerance of previous anesthesia was reviewed. - The risks and benefits of the procedure and the sedation options and risks were discussed with the patient. All questions were answered and informed consent was obtained. After obtaining informed consent, the endoscope was passed under direct vision. Throughout the procedure, the patient's blood pressure, pulse, and oxygen saturations were monitored continuously. The Endoscope was introduced through the mouth, and advanced to the second part of duodenum. The upper GI endoscopy was accomplished without difficulty. The patient tolerated the procedure well. Findings: The examined esophagus was normal. The entire examined stomach was normal. The examined duodenum was normal. There was evidence of a gastrostomy present in the gastric body. This was characterized by healthy appearing mucosa. Impression: - Normal esophagus. - Normal stomach. - Normal examined duodenum. - Gastrostomy present characterized by healthy appearing mucosa. - No specimens collected. Recommendation: - Return patient to [facility] for ongoing care. Cortney Yang MD 06/29/2020 4:13:31 PM This report has been signed electronically. Note Initiated On: 06/29/2020 3:24 PM Number of Addenda: 1 I attest to the content of the Intraoperative Record and orders documented therein, exceptions below {[id number]}
--- NOTE | 2020-06-29 16:33 | Progress Notes ---
DATE: 06/29/2020 The patient was assessed by pulmonary and felt that he could tolerate a gastrostomy tube placement today and he has agreed to proceed. The patient was taken to the OR and given propofol sedation without intubation and a 20-Tunisian gastrostomy tube was placed without difficulty or blood loss. The patient tolerated the procedure well. The tube can be used starting this evening. Dietary will be directing his type and schedule for his tube feedings going forward.
--- NOTE | 2020-06-29 16:41 | Anesthesiology Progress Note ---
Date of Service June 29, 2020 Anesthesia Post Procedure Vital Signs Vital Signs: Temp Pulse Pulse Resp BP Pulse Ox 06/29/20 16:35 59 L 19 161/90 H 97 06/29/20 16:25 58 L 15 148/93 H 96 06/29/20 16:16 96.8 F L 55 L 16 132/87 96 06/29/20 15:18 98.1 F 68 19 201/116 H 96 06/29/20 07:34 97.9 F 56 L 18 104/63 93 06/29/20 07:16 63 16 93 06/28/20 23:00 97.7 F 65 18 142/85 H 93 06/28/20 19:32 61 18 92 Transfer of Care Handoff Completed per policy Notes Mental Status: alert / awake / arousable and participated in evaluation Patient Amnestic to Procedure: Yes Nausea / Vomiting: adequately controlled Pain: adequately controlled Airway Patency, RR, SpO2: stable & adequate BP & HR: stable & adequate Hydration State: stable & adequate Anesthetic Complications: no major complications apparent and Pt Satisfied with anesthetic care
[2020-06-29] MEDS: FIBERSOURCE HN 1.2 CAL 1000 ML BAG GT SCH (20:32)
--- NOTE | 2020-06-29 22:05 | Hospitalist Progress Note ---
Date of Service June 29, 2020 Assessment & Plan (1) Aspiration pneumonitis: vs. PNA. Ertapenem given in ER. No definitive PNA symptoms from history, imaging or exam given chronic bronchiectasis changes. Procalcitonin negative. will continue to treat with antibiotics: now on zosyn. Patient failed swallow eval Awaiting placement for gastrostomy tube later today. D/W nurtrition and GI, will have orders placed for G tube feedings. will cancel PPN as patient will have G tube feedings today. (2) Pneumonia: Antibiotics as above. (3) COPD (chronic obstructive pulmonary disease): Continue duo nebs. On no maintenance inhalers for this. Unclear if true diagnosis. (4) Bronchiectasis: Consult pulmonology (5) Hypoxia: No oxygen requirement at home. Likely secondary to aspiration pneumonitis. Aim O2 sats > 90% (6) Esophageal stenosis: Notable history of this. No stenosis noted on recent EGD. will require gastrostomy tube, is cleared by pulmonary. (7) Hypothyroidism: Repeat TSH with a.m. labs continue levothyroxine 175 mcg p.o. daily (8) Laryngopharyngeal reflux: Continue pantoprazole 40 mg p.o. twice daily I suspect this caused the loss of his bronchiectasis as he continues to lie flat at night Elevate head of bed greater than 30 degrees at all times (9) History of celiac disease: Notable history of this. Unclear how this was diagnosed. He does not appear to be on a gluten-free diet at present. (10) Chronic pulmonary aspiration: (11) BPH (benign prostatic hyperplasia): Notable history of this but was taken off medication I understand due to hypotension. Given ongoing symptoms if blood pressure stable will consider adding tamsulosin. (12) Anxiety state, unspecified: Continue his usual Lorazepam 1 mg p.o. at bedtime as needed Admission and Anticipated Discharge Date Admission Date: June 27, 2020 Subjective Patient reports that he is hungry. He is agreeable to Gastrostimy tube. Review of Systems Review of Systems: All systems reviewed & are unremarkable except as noted in HPI & below Physical Exam Physical Exam: Constitutional: well developed and + frail appearing; + not well nourished and no acute distress Eyes: PERRL, conjunctivae normal, anicteric sclerae ENMT: Mouth: + dry oral mucous membranes (Very dry) Neck: trachea midline Respiratory: Auscultation: rhonchi (Bilateral coarse upper airway sounds) Cardiovascular: RRR, no murmur, no edema Gastrointestinal (Abdomen): normal bowel sounds, soft, nontender, no hepatosplenomegaly Musculoskeletal: Generalized chronic muscle wasting Skin: no rashes, warm and dry Right neck chronic radiation changes Neurologic: moves all extremities and awake; no focal motor deficits and not confused Psychiatric: A+Ox3, euthymic affect Genitourinary: no CVA tenderness Results & Data Results & Data ([facility]) Vital Signs (Past 12 Hours) Vital Signs Temp Pulse Pulse Resp BP Pulse Ox 06/29/20 18:54 68 16 94 06/29/20 16:45 36.6 C 59 L 17 161/96 H 95 06/29/20 16:35 59 L 19 161/90 H 97 06/29/20 16:25 58 L 15 148/93 H 96 06/29/20 16:16 36.0 C L 55 L 16 132/87 96 06/29/20 15:18 36.7 C 68 19 201/116 H 96 PG Care Time/CCT Total # of Minutes Spent Total Time Spent with Patient: Total time spent is greater than 50% in coordination of care (as documented) at patient's floor/unit and/or counseling patient: Coding Level of Care Code 30707 Subs Hosp Care Lvl 3 Diagnoses Aspiration pneumonitis J69.0 Pneumonia J18.9 Laterality: bilateral Lung location: unspecified part of lung Pneumonia type: due to unspecified organism COPD (chronic obstructive pulmonary disease) J44.9 Bronchiectasis J47.9 Hypoxia R09.02 Esophageal stenosis K22.2 Hypothyroidism E03.9 Laryngopharyngeal reflux K21.9 History of celiac disease Z87.19 Chronic pulmonary aspiration T17.908A BPH (benign prostatic hyperplasia) N40.0 Anxiety state, unspecified F41.1 Time Spent (min) 35 (1) Pneumonia Laterality: bilateral Lung location: unspecified part of lung Pneumonia type: due to unspecified organism Qualified Code(s): J18.9 - Pneumonia, unspecified organism
[2020-06-29] MEDS: LORazepam 1 MG TAB PO PRN (23:37)
[2020-06-29] MEDS: PANTOprazole 40 MG TAB PO SCH (23:40)
[2020-06-30] MEDS: D5W AND LACTATED RINGERS 1,000 ML IV SCH ×5 (00:07→20:03)
[2020-06-30] MEDS: INSULIN ASPART 100 UNITS/ML 3 ML PEN SC SCH ×4 (00:32→17:49)
[2020-06-30] MEDS: PIPERACILLIN/TAZOBACTAM 3.375 GM in DEXTROSE 5% 100 ML IV SCH ×3 (03:26→17:44)
[2020-06-30] MEDS: LEVOTHYROXINE SODIUM 175 MCG TABLET PO SCH (06:23)
[2020-06-30] MEDS: levETIRAcetam 750 MG in 0.9 % SODIUM CHLORIDE 100 ML IV SCH ×2 (06:26→17:45)
[2020-06-30 07:05] LABS: Potassium 3.4 mmol/L (3.5-5.1)
[2020-06-30 07:06] LABS: BUN Creatinine Ratio 11.8 (10-20); Creatinine Clr Calc Pharmacy 70.2 ml/min; Est GFR (African American) 96.3; Est GFR (Non-African American) 83.1
[2020-06-30] MEDS: ALBUTEROL 0.083% NEBU SOLN 3 ML VIAL INH SCH ×2 (07:36→19:16)
[2020-06-30] MEDS: ASPIRIN 81 MG ECTAB PO SCH (08:33)
[2020-06-30] MEDS: PANTOprazole 40 MG in SYRINGE 0 ML IV SCH ×2 (08:33→20:05)
[2020-06-30] MEDS: MULTIVITAMIN TAB PO SCH (08:34)
[2020-06-30] MEDS: SIMVASTATIN 40 MG TAB PO SCH (08:34)
[2020-06-30] MEDS: guaiFENesin SUGAR FREE 200 MG/10 ML UDC PEG SCH ×2 (08:35→20:06)
--- NOTE | 2020-06-30 13:46 | Progress Notes ---
DATE: 06/30/2020 SUBJECTIVE: The patient is status post PEG tube placement yesterday afternoon. He is receiving tube feedings currently and tolerating them well. The gastrostomy tube site is little bit sore as expected, but he has not taken any pain medication. OBJECTIVE: His blood pressure is 131/89, pulse 66 and regular, temperature is 36.8, room air saturation 93%. The gastrostomy tube site appears clean and healthy with no signs of inflammation or infection. IMPRESSION AND PLAN: The patient is doing well following his gastrostomy tube placement. I recommend that as many medications as possible can be converted to liquid form, so they can be administered through the tube. If any solid medications need to be passed through there, they should be dissolved thoroughly and flushed with at least 30-50 mL of fluid afterwards. The patient will continue to get trained on tube care and tube feedings, which can be arranged through home nursing and then in a few weeks, we can exchange the tube that is there now with a low profile tube, which he has requested.
[2020-06-30] MEDS ORDERED: TRAMADOL HCL 50 MG TABLET NG STA (15:34)
[2020-06-30] MEDS: LORazepam 1 MG TAB PO PRN (21:48)
--- NOTE | 2020-06-30 22:06 | Hospitalist Progress Note ---
Date of Service June 30, 2020 Assessment & Plan (1) Aspiration pneumonitis: vs. PNA. Ertapenem given in ER. No definitive PNA symptoms from history, imaging or exam given chronic bronchiectasis changes. Procalcitonin negative. will continue to treat with antibiotics: now on zosyn. Patient failed swallow eval S/P gastrostomy tube placement. Orders place for feedings. Patient is tolerating feedings. Likely discharge for Thursday. (2) Pneumonia: Antibiotics as above. (3) COPD (chronic obstructive pulmonary disease): Continue duo nebs. On no maintenance inhalers for this. Unclear if true diagnosis. (4) Bronchiectasis: Consult pulmonology (5) Hypoxia: No oxygen requirement at home. Likely secondary to aspiration pneumonitis. Aim O2 sats > 90% (6) Esophageal stenosis: Notable history of this. No stenosis noted on recent EGD. will require gastrostomy tube, is cleared by pulmonary. (7) Hypothyroidism: Repeat TSH with a.m. labs continue levothyroxine 175 mcg p.o. daily (8) Laryngopharyngeal reflux: Continue pantoprazole 40 mg p.o. twice daily I suspect this caused the loss of his bronchiectasis as he continues to lie flat at night Elevate head of bed greater than 30 degrees at all times (9) History of celiac disease: Notable history of this. Unclear how this was diagnosed. He does not appear to be on a gluten-free diet at present. (10) Chronic pulmonary aspiration: (11) BPH (benign prostatic hyperplasia): Notable history of this but was taken off medication I understand due to hypotension. Given ongoing symptoms if blood pressure stable will consider adding tamsulosin. (12) Anxiety state, unspecified: Continue his usual Lorazepam 1 mg p.o. at bedtime as needed Admission and Anticipated Discharge Date Admission Date: June 27, 2020 Subjective Patient reports feeling better. No longer starving. He is having pain at the site of the Gastostomy tube. Review of Systems Review of Systems: All systems reviewed & are unremarkable except as noted in HPI & below Physical Exam Physical Exam: Constitutional: well developed and + frail appearing; + not well nourished and no acute distress Eyes: PERRL, conjunctivae normal, anicteric sclerae ENMT: Mouth: moist, mucous membranes Neck: trachea midline Respiratory: Auscultation: rhonchi (Bilateral coarse upper airway sounds) Cardiovascular: RRR, no murmur, no edema Gastrointestinal (Abdomen): normal bowel sounds, soft, nontender, no hepatosplenomegaly Musculoskeletal: Generalized chronic muscle wasting Skin: no rashes, warm and dry Right neck chronic radiation changes Neurologic: moves all extremities and awake; no focal motor deficits and not confused Psychiatric: A+Ox3, euthymic affect Genitourinary: no CVA tenderness Results & Data Results & Data ([facility]) Vital Signs (Past 12 Hours) Vital Signs Temp Pulse Resp BP Pulse Ox 06/30/20 19:18 63 18 92 06/30/20 14:49 36.4 C L 67 18 136/94 94 PG Care Time/CCT Total # of Minutes Spent Total Time Spent with Patient: Total time spent is greater than 50% in coordination of care (as documented) at patient's floor/unit and/or counseling patient: Coding Level of Care Code 51880 Subseq Hosp Care Lvl 3 Diagnoses Aspiration pneumonitis J69.0 Pneumonia J18.9 Laterality: bilateral Lung location: unspecified part of lung Pneumonia type: due to unspecified organism COPD (chronic obstructive pulmonary disease) J44.9 Bronchiectasis J47.9 Hypoxia R09.02 Esophageal stenosis K22.2 Hypothyroidism E03.9 Laryngopharyngeal reflux K21.9 History of celiac disease Z87.19 Chronic pulmonary aspiration T17.908A BPH (benign prostatic hyperplasia) N40.0 Anxiety state, unspecified F41.1 Time Spent (min) 35 (1) Pneumonia Laterality: bilateral Lung location: unspecified part of lung Pneumonia type: due to unspecified organism Qualified Code(s): J18.9 - Pneumonia, unspecified organism
[2020-06-30] MEDS: FIBERSOURCE HN 1.2 CAL 1000 ML BAG GT SCH (23:41)
[2020-07-01] MEDS: ALBUTEROL 0.083% NEBU SOLN 3 ML VIAL NEB PRN (00:20)
[2020-07-01] MEDS: INSULIN ASPART 100 UNITS/ML 3 ML PEN SC SCH ×4 (00:28→18:33)
[2020-07-01] MEDS: PIPERACILLIN/TAZOBACTAM 3.375 GM in DEXTROSE 5% 100 ML IV SCH ×2 (02:51→10:07)
[2020-07-01] MEDS: D5W AND LACTATED RINGERS 1,000 ML IV SCH ×4 (02:52→23:16)
[2020-07-01] MEDS: TRAMADOL HCL 50 MG TABLET NG PRN ×2 (02:59→18:22)
[2020-07-01] MEDS: levETIRAcetam 750 MG in 0.9 % SODIUM CHLORIDE 100 ML IV SCH ×2 (05:59→18:22)
[2020-07-01] MEDS: LEVOTHYROXINE SODIUM 175 MCG TABLET PO SCH (06:18)
[2020-07-01] MEDS: ALBUTEROL 0.083% NEBU SOLN 3 ML VIAL INH SCH ×2 (06:43→18:55)
[2020-07-01 06:56] LABS: BUN Creatinine Ratio 11.3 (10-20); Calcium 8.4 mg/dl (8.5-10.1); Creatinine Clr Calc Pharmacy 73.3 ml/min; Est GFR (African American) 101.4; Est GFR (Non-African American) 87.5; Potassium 3.8 mmol/L (3.5-5.1)
[2020-07-01] MEDS: PANTOprazole 40 MG in SYRINGE 0 ML IV SCH ×2 (08:43→21:33)
[2020-07-01] MEDS: guaiFENesin SUGAR FREE 200 MG/10 ML UDC PEG SCH ×2 (08:44→21:33)
[2020-07-01] MEDS: ASPIRIN 81 MG ECTAB PO SCH (08:44)
[2020-07-01] MEDS: SIMVASTATIN 40 MG TAB PO SCH (08:44)
[2020-07-01] MEDS: MULTIVITAMIN TAB PO SCH (08:45)
--- NOTE | 2020-07-01 10:06 | Progress Notes ---
DATE: 07/01/2020 SUBJECTIVE: The patient is now postop day 2 for gastrostomy tube placement. The tube placement site is still a little bit sore. He did take some Tylenol, which did not really relieve the symptoms very much. His tube feedings are going well. OBJECTIVE: VITAL SIGNS: His blood pressure is 118/71, pulse 59, temperature is 36.7, room air saturation 93%. ABDOMEN: The gastrostomy tube site is clean without any signs of inflammation. I did loosen the external bumper slightly to make sure it is not overly tight. IMPRESSION: The patient's G-tube feedings are going well. PLAN: For him to go home tomorrow. Before he is discharged, he should have a plan in place with home nursing to set up his feedings in schedule and tube care. We should be able to replace the existing tube with a low profile feeding tube in a few weeks as an outpatient.
[2020-07-01] MEDS ORDERED: LINEZOLID 600 MG/300 ML D5W IV SCH (13:00)
[2020-07-01] MEDS ORDERED: LINEZOLID CONSULT ACTIVE PRN (13:01)
[2020-07-01] MEDS: LINEZOLID 600 MG/300 ML BAG IV SCH (13:39)
[2020-07-01] MEDS: FIBERSOURCE HN 1.2 CAL 1000 ML BAG GT SCH (17:19)
[2020-07-01] MEDS: LORazepam 1 MG TAB PO PRN (21:24)
[2020-07-02] MEDS: INSULIN ASPART 100 UNITS/ML 3 ML PEN SC SCH ×4 (00:01→19:11)
[2020-07-02] MEDS: LINEZOLID 600 MG/300 ML BAG IV SCH ×2 (04:39→16:03)
[2020-07-02] MEDS: levETIRAcetam 750 MG in 0.9 % SODIUM CHLORIDE 100 ML IV SCH ×2 (06:09→19:35)
[2020-07-02] MEDS: LEVOTHYROXINE SODIUM 175 MCG TABLET PO SCH (06:17)
[2020-07-02] MEDS: D5W AND LACTATED RINGERS 1,000 ML IV SCH ×3 (06:21→20:31)
[2020-07-02 06:38] LABS: Hematocrit (blood only) 33.2 % (42-52); Hemoglobin 10.6 g/dL (14.0-18.0); Mean Corpuscular Hemoglobin 32.3 pg (25-34); Mean Corpuscular Hgb Conc 31.9 g/dL (32-36); Mean Corpuscular Volume 101.2 fL (80-100); Mean Platelet Volume 9.7 fL (7.4-10.4); Platelet Count 263 K/uL (130-400); RDW Coefficient of Variation 13.1 % (11.5-14.5); RDW Standard Deviation 48.2 fL (36.4-46.3); Red Blood Count 3.28 M/uL (4.7-6.1); White Blood Count 6.43 K/uL (4.8-10.8)
[2020-07-02] MEDS ORDERED: Nursing to Pharmacy Communication SCH (07:00)
[2020-07-02 07:11] LABS: BUN Creatinine Ratio 9.5 (10-20); Calcium 8.4 mg/dl (8.5-10.1); Creatinine Clr Calc Pharmacy 82.7 ml/min; Est GFR (African American) 105.2; Est GFR (Non-African American) 90.8; Potassium 3.9 mmol/L (3.5-5.1)
[2020-07-02] MEDS: ALBUTEROL 0.083% NEBU SOLN 3 ML VIAL INH SCH ×2 (07:14→19:28)
[2020-07-02 08:05] LABS: Estimated Average Glucose 126 mg/dl
[2020-07-02] MEDS: ASPIRIN 81 MG CHEW PEG SCH (08:47)
[2020-07-02] MEDS: guaiFENesin SUGAR FREE 200 MG/10 ML UDC PEG SCH ×2 (08:47→20:08)
[2020-07-02] MEDS: SIMVASTATIN 40 MG TAB PO SCH (08:48)
[2020-07-02] MEDS: MULTIVITAMIN TAB PO SCH (08:48)
--- NOTE | 2020-07-02 08:57 | Gastroenterology Progress Note ---
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 Has had gastrostomy tube previously. Unfortunately having recurrent bouts of aspiration pneumonia and has failed video swallow. Maintain NPO The patient is doing well following his gastrostomy tube placement. Convert medications to liquid form, if any solid medications need to be passed through there, they should be dissolved thoroughly and flushed with at least 30-50 mL of fluid afterwards. Plan for discharge is home likely today. The patient will continue to get trained on tube care and tube feedings, which can be arranged through home nursing and then in a few weeks, we can exchange the tube that is there now with a low profile tube, which he has requested. Follow-up appointment provided for patient in the GI office. Please refer to supervising physician addendum for further recommendations. Admission and Anticipated Discharge Date Admission Date: June 27, 2020 Subjective The patient is a pleasant 65-year-old male with past medical history to include vocal cord paralysis, obstructive sleep apnea, laryngeal pharyngeal reflux, macrocytic anemia, hypothyroidism, hypertension, dysphasia, BPH, tonsillar neoplasm status post radiation, stenosis of right internal carotid artery, celiac disease, COPD, bronchiectasis, and recent ESBL Klebsiella pneumonia. Video swallow was obtained on 06/28/2020 and demonstrated moderate silent aspiration. Spoke to speech therapist following testing and patient demonstrated significant silent aspiration requiring prompting to clear. EGD with gastrostomy tube placement on 06/29/2020. On exam/interview today, the patient reports that he is doing well. Any nausea, vomiting, abdominal pain. Denies any GI complaints. Gastrostomy tube insertion site is sore per his report. Has had no bowel movement since admission. Reports he is passing gas. He is on room air. Review of Systems Respiratory: as per Subjective / HPI Physical Exam Constitutional: WD/WN, vitals as above Eyes: PERRL, conjunctivae normal, anicteric sclerae ENMT: external ear and nose normal, oropharynx normal Neck: normal visual inspection Respiratory: normal respiratory effort; no respiratory distress and no labored breathing Cardiovascular: RRR, no murmur, no edema Gastrointestinal (Abdomen): normal bowel sounds, soft, nontender, no hepatosplenomegaly Gastrostomy tube intact with minimal drainage at insertion site. No redness. Musculoskeletal: no cyanosis or clubbing, extremities motor strength 5/5 Skin: no rashes, warm and dry Neurologic: PERRL, EOMI, accommodation nl, no face palsy, no dysarthria Psychiatric: A+Ox3, euthymic affect Lymphatic: no cervical or axillary lymphadenopathy Results & Data ([facility]) Vital Signs (Past 12 Hours) Vital Signs Temp Pulse Resp BP Pulse Ox 07/02/20 07:49 36.6 C 64 18 133/81 95 07/02/20 07:14 64 14 95 07/02/20 02:47 36.7 C 70 17 111/65 92 07/01/20 22:49 36.8 C 72 19 143/78 H 93 Laboratory Results - last 24 hr 07/01/20 07/01/20 07/02/20 11:41 18:16 00:00 WBC RBC Hgb Hct MCV MCH MCHC RDW Std Deviation RDW Coeff of Jordy Plt Count MPV Sodium Potassium Chloride Carbon Dioxide Anion Gap BUN Creatinine Est Cr Clr Drug Dosing Est GFR ( Amer) Est GFR (Non-Af Amer) BUN/Creatinine Ratio Glucose POC Glucose 143 H 140 H 131 H Estimat Average Glucose Hemoglobin A1c Calcium 07/02/20 07/02/20 07/02/20 05:58 05:58 05:58 WBC 6.43 RBC 3.28 L Hgb 10.6 L Hct 33.2 L MCV 101.2 H MCH 32.3 MCHC 31.9 L RDW Std Deviation 48.2 H RDW Coeff of Jordy 13.1 Plt Count 263 MPV 9.7 Sodium 137 Potassium 3.9 Chloride 104 Carbon Dioxide 27 Anion Gap 6.0 BUN 8 Creatinine 0.85 Est Cr Clr Drug Dosing 82.7 Est GFR ( Amer) 105.2 Est GFR (Non-Af Amer) 90.8 BUN/Creatinine Ratio 9.5 L Glucose 116 H POC Glucose Estimat Average Glucose 126 Hemoglobin A1c 6.0 H Calcium 8.4 L 07/02/20 06:09 WBC RBC Hgb Hct MCV MCH MCHC RDW Std Deviation RDW Coeff of Jordy Plt Count MPV Sodium Potassium Chloride Carbon Dioxide Anion Gap BUN Creatinine Est Cr Clr Drug Dosing Est GFR ( Amer) Est GFR (Non-Af Amer) BUN/Creatinine Ratio Glucose POC Glucose 125 H Estimat Average Glucose Hemoglobin A1c Calcium
--- NOTE | 2020-07-02 11:35 | Hospitalist Progress Note ---
Date of Service July 01, 2020 Assessment & Plan (1) Aspiration pneumonitis: vs. PNA. Ertapenem given in ER. No definitive PNA symptoms from history, imaging or exam given chronic bronchiectasis changes. Procalcitonin negative. will continue to treat with antibiotics: now on zosyn. Patient failed swallow eval S/P gastrostomy tube placement. Patient is tolerating feedings. Likely discharge for Thursday. Sputum showing MRSA; will need linezolid for 7 days. This can be given orally. will also transition him to levaquin for 7 day today as well. (2) Pneumonia: Antibiotics as above. (3) COPD (chronic obstructive pulmonary disease): Continue duo nebs. On no maintenance inhalers for this. Unclear if true diagnosis. (4) Bronchiectasis: Consult pulmonology (5) Hypoxia: No oxygen requirement at home. Likely secondary to aspiration pneumonitis. Aim O2 sats > 90% (6) Esophageal stenosis: Notable history of this. No stenosis noted on recent EGD. will require gastrostomy tube, is cleared by pulmonary. (7) Hypothyroidism: Repeat TSH with a.m. labs continue levothyroxine 175 mcg p.o. daily (8) Laryngopharyngeal reflux: Continue pantoprazole 40 mg p.o. twice daily I suspect this caused the loss of his bronchiectasis as he continues to lie flat at night Elevate head of bed greater than 30 degrees at all times (9) History of celiac disease: Notable history of this. Unclear how this was diagnosed. He does not appear to be on a gluten-free diet at present. (10) Chronic pulmonary aspiration: (11) BPH (benign prostatic hyperplasia): Notable history of this but was taken off medication I understand due to hypotension. Given ongoing symptoms if blood pressure stable will consider adding tamsulosin. (12) Anxiety state, unspecified: Continue his usual Lorazepam 1 mg p.o. at bedtime as needed Admission and Anticipated Discharge Date Admission Date: June 27, 2020 Subjective The patient is a pleasant 65-year-old male with past medical history to include vocal cord paralysis, obstructive sleep apnea, laryngeal pharyngeal reflux, macrocytic anemia, hypothyroidism, hypertension, dysphasia, BPH, tonsillar neoplasm status post radiation, stenosis of right internal carotid artery, celiac disease, COPD, bronchiectasis, and recent ESBL Klebsiella pneumonia. Patient reports feeling well. He has no new complaints Review of Systems Review of Systems: All systems reviewed & are unremarkable except as noted in HPI & below Physical Exam Physical Exam: Constitutional: well developed and + frail appearing; + not well nourished and no acute distress Eyes: PERRL, conjunctivae normal, anicteric sclerae ENMT: Mouth: moist, mucous membranes Neck: trachea midline Respiratory: Auscultation: rhonchi (Bilateral coarse upper airway sounds) Cardiovascular: RRR, no murmur, no edema Gastrointestinal (Abdomen): normal bowel sounds, soft, nontender, no hepatosplenomegaly Musculoskeletal: Generalized chronic muscle wasting Skin: no rashes, warm and dry Right neck chronic radiation changes Neurologic: moves all extremities and awake; no focal motor deficits and not confused Psychiatric: A+Ox3, euthymic affect Genitourinary: no CVA tenderness Results & Data Results & Data ([facility]) Vital Signs (Past 12 Hours) Vital Signs Temp Pulse Resp BP Pulse Ox 07/02/20 07:49 36.6 C 64 18 133/81 95 07/02/20 07:14 64 14 95 07/02/20 02:47 36.7 C 70 17 111/65 92 PG Care Time/CCT Total # of Minutes Spent Total Time Spent with Patient: Total time spent is greater than 50% in coordination of care (as documented) at patient's floor/unit and/or counseling patient: Coding Level of Care Code 73109 Subseq Hosp Care Lvl 2 Diagnoses Aspiration pneumonitis J69.0 Pneumonia J18.9 Laterality: bilateral Lung location: unspecified part of lung Pneumonia type: due to unspecified organism COPD (chronic obstructive pulmonary disease) J44.9 Bronchiectasis J47.9 Hypoxia R09.02 Esophageal stenosis K22.2 Hypothyroidism E03.9 Laryngopharyngeal reflux K21.9 History of celiac disease Z87.19 Chronic pulmonary aspiration T17.908A BPH (benign prostatic hyperplasia) N40.0 Anxiety state, unspecified F41.1 (1) Pneumonia Laterality: bilateral Lung location: unspecified part of lung Pneumonia type: due to unspecified organism Qualified Code(s): J18.9 - Pneumonia, unspecified organism
[2020-07-02] MEDS: PANTOprazole 40 MG in SYRINGE 0 ML IV SCH (11:36)
[2020-07-02] MEDS: levoFLOXacin 750 MG TAB PO SCH (12:34)
[2020-07-02] MEDS ORDERED: FIBERSOURCE HN 1.2 CAL 1000 ML BAG GT SCH (17:00)
[2020-07-02] MEDS: TRAMADOL HCL 50 MG TABLET NG PRN (18:40)
[2020-07-02] MEDS: POLYETHYLENE (MIRALAX) 17 GM PACK PEG PRN (18:41)
[2020-07-02] MEDS ORDERED: KETOROLAC TROMETHAMINE 15 MG/ML VIAL IV ONE (19:52)
[2020-07-02] MEDS: LANSOPRAZOLE 30 MG SOLTAB GT SCH (20:08)
[2020-07-02] MEDS: FIBERSOURCE HN 1.2 CAL 1000 ML BAG GT SCH (20:09)
[2020-07-02] MEDS: LORazepam 1 MG TAB PO PRN (21:39)
--- NOTE | 2020-07-02 22:32 | Hospitalist Progress Note ---
Date of Service July 02, 2020 Assessment & Plan (1) Aspiration pneumonitis: vs. PNA. Ertapenem given in ER. No definitive PNA symptoms from history, imaging or exam given chronic bronchiectasis changes. Procalcitonin negative. will continue to treat with antibiotics: now on zosyn. Patient failed swallow eval S/P gastrostomy tube placement. Patient is tolerating feedings. Likely discharge for Thursday. Sputum showing MRSA; will need linezolid for 7 days. This can be given orally. will also transition him to levaquin for total of about 7 days of gram negative coverage due to bronchiectasis. Peña is for patient to be discharged tomorrow. Script for tube feedings completed and oral suspension of linezolid are sent to pharmacy. If patient is discharged after 8's AM dose, he will need only 9 doses. In regards to levofloxacin, he will have received 2 doses. He had received about 3 days worth of zosyn. would continue levofloxacin for 3 more days after discharge. (2) Pneumonia: Antibiotics as above. (3) COPD (chronic obstructive pulmonary disease): Continue duo nebs. On no maintenance inhalers for this. Unclear if true diagnosis. (4) Bronchiectasis: Consult pulmonology (5) Hypoxia: No oxygen requirement at home. Likely secondary to aspiration pneumonitis. Aim O2 sats > 90% (6) Esophageal stenosis: Notable history of this. No stenosis noted on recent EGD. will require gastrostomy tube, is cleared by pulmonary. (7) Hypothyroidism: Repeat TSH with a.m. labs continue levothyroxine 175 mcg p.o. daily (8) Laryngopharyngeal reflux: Continue pantoprazole 40 mg p.o. twice daily I suspect this caused the loss of his bronchiectasis as he continues to lie flat at night Elevate head of bed greater than 30 degrees at all times (9) History of celiac disease: Notable history of this. Unclear how this was diagnosed. He does not appear to be on a gluten-free diet at present. (10) BPH (benign prostatic hyperplasia): Notable history of this but was taken off medication I understand due to hypotension. Given ongoing symptoms if blood pressure stable will consider add ing tamsulosin. (11) Anxiety state, unspecified: Continue his usual Lorazepam 1 mg p.o. at bedtime as needed (12) Severe protein-calorie malnutrition: Due to the above problem, patient has lost weight and has not been able to eat. Will continue withe the Gastrostomy tube feeding. Admission and Anticipated Discharge Date Admission Date: June 27, 2020 Subjective 65 yo male reports feeling well. He has no new complaints except for not having a bowel movement for one week. He is requesting a medication for this. He states he is not too concerned about it as he is not uncomfortable. Review of Systems Review of Systems: All systems reviewed & are unremarkable except as noted in HPI & below Physical Exam Physical Exam: Constitutional: well developed and + frail appearing; + not well nourished and no acute distress Eyes: PERRL, conjunctivae normal, anicteric sclerae ENMT: Mouth: moist, mucous membranes Neck: trachea midline Respiratory: Auscultation: rhonchi (Bilateral coarse upper airway sounds) Cardiovascular: RRR, no murmur, no edema Gastrointestinal (Abdomen): normal bowel sounds, soft, nontender, no hepatosplenomegaly,gastrostomy tube placed Musculoskeletal: Generalized chronic muscle wasting Skin: no rashes, warm and dry Right neck chronic radiation changes Neurologic: moves all extremities and awake; no focal motor deficits and not confused Psychiatric: A+Ox3, euthymic affect Genitourinary: no CVA tenderness Results & Data Results & Data ([facility]) Vital Signs (Past 12 Hours) Vital Signs Temp Pulse Resp BP Pulse Ox 07/02/20 19:30 70 18 91 07/02/20 15:33 36.8 C 69 18 104/65 90 PG Care Time/CCT Total # of Minutes Spent Total Time Spent with Patient: Total time spent is greater than 50% in coordination of care (as documented) at patient's floor/unit and/or counseling patient: Coding Level of Care Code 41674 Subseq Hosp Care Lvl 3 Diagnoses Aspiration pneumonitis J69.0 Pneumonia J18.9 Laterality: bilateral Lung location: unspecified part of lung Pneumonia type: due to unspecified organism COPD (chronic obstructive pulmonary disease) J44.9 Bronchiectasis J47.9 Hypoxia R09.02 Esophageal stenosis K22.2 Hypothyroidism E03.9 Laryngopharyngeal reflux K21.9 History of celiac disease Z87.19 BPH (benign prostatic hyperplasia) N40.0 Anxiety state, unspecified F41.1 Severe protein-calorie malnutrition E43 Time Spent (min) 45 (1) Pneumonia Laterality: bilateral Lung location: unspecified part of lung Pneumonia type: due to unspecified organism Qualified Code(s): J18.9 - Pneumonia, unspecified organism
[2020-07-03] MEDS: INSULIN ASPART 100 UNITS/ML 3 ML PEN SC SCH ×3 (00:01→11:48)
[2020-07-03] MEDS: D5W AND LACTATED RINGERS 1,000 ML IV SCH ×2 (03:19→11:02)
[2020-07-03] MEDS: LINEZOLID 600 MG/300 ML BAG IV SCH ×2 (04:12→15:10)
[2020-07-03] MEDS: levETIRAcetam 750 MG in 0.9 % SODIUM CHLORIDE 100 ML IV SCH (06:00)
[2020-07-03] MEDS: LEVOTHYROXINE SODIUM 175 MCG TABLET PO SCH (06:04)
[2020-07-03] MEDS: ALBUTEROL 0.083% NEBU SOLN 3 ML VIAL INH SCH (07:07)
[2020-07-03] MEDS: FIBERSOURCE HN 1.2 CAL 1000 ML BAG GT SCH ×3 (07:33→15:11)
[2020-07-03] MEDS: SIMVASTATIN 40 MG TAB PO SCH (08:45)
[2020-07-03] MEDS: MULTIVITAMIN TAB PO SCH (08:46)
[2020-07-03] MEDS: guaiFENesin SUGAR FREE 200 MG/10 ML UDC PEG SCH (08:46)
[2020-07-03] MEDS: LANSOPRAZOLE 30 MG SOLTAB GT SCH (08:46)
[2020-07-03] MEDS: ASPIRIN 81 MG CHEW PEG SCH (09:02)
[2020-07-03] MEDS: POLYETHYLENE (MIRALAX) 17 GM PACK PEG PRN (11:05)
[2020-07-03] MEDS: levoFLOXacin 750 MG TAB PO SCH (11:06)
[2020-07-03] MEDS: ALBUTEROL 0.083% NEBU SOLN 3 ML VIAL NEB PRN (15:46)
--- NOTE | 2020-07-03 16:50 | Discharge Summary ---
Date of Service July 03, 2020 Admission HPI Per Admitting Provider For PEG tube placement Principal Diagnosis Dysphagia Aspiration pneumonia Discharge Exam Constitutional WD/WN, vitals as above Eyes EOM intact bilaterally; no conjunctival abnormality ENMT external ear and nose normal, oropharynx normal Neck trachea midline, no thyromegaly normal visual inspection Respiratory normal respiratory effort, lungs clear to auscultation no respiratory distress Cardiovascular RRR, no murmur, no edema Gastrointestinal (Abdomen) Inspection/Auscultation: abdomen normal to inspection; abdomen not distended Musculoskeletal no cyanosis or clubbing, extremities motor strength 5/5 Skin no rashes, warm and dry Neurologic moves all extremities and awake Psychiatric Orientation: alert, oriented to person and cooperative Discharge Data Allergies Allergy/AdvReac Type Severity Reaction Status Date / Time hydromorphone Allergy Severe CARDIAC/RESPIRATORY Verified 06/29/20 15:29 ARREST tetracycline Allergy Intermediate SORES ON Verified 06/29/20 15:29 SKIN Sulfa (Sulfonamide Allergy Mild Rash Verified 06/29/20 15:29 Antibiotics) amoxicillin [From Augmentin] Allergy Unknown Verified 06/29/20 15:29 clavulanic acid Allergy Unknown Verified 06/29/20 15:29 [From Augmentin] Consultations 06/27/20 16:54 ED Decision to Admit Stat 06/27/20 17:34 Consult Health Information Management Routine 06/27/20 20:20 Consult Gastroenterology Routine Consult Pulmonology Routine Procedures Performed Operation Date: 06/29/20 08:30 Actual Procedures p Esophagogastroduodenoscopy with Gastric Tube Placement(Not Applicable) - Matthew Lopez Ordered Studies 06/28/20 10:30 FL video swallow Routine Hospital Course (1) Aspiration pneumonitis: vs. PNA. Ertapenem given in ER. No definitive PNA symptoms from history, imaging or exam given chronic bronchiectasis changes. Procalcitonin negative. will continue to treat with antibiotics: now on zosyn. Patient failed swallow eval S/P gastrostomy tube placement. Patient is tolerating feedings. Likely discharge for Thursday. Sputum showing MRSA; will need linezolid for 7 days. This can be given orally. will also transition him to levaquin for total of about 7 days of gram negative coverage due to bronchiectasis. Discharged on: Feedings (to be delivered tonight and home RN to come tomorrow AM) - Linezolid and levofloxacin for pneumonia - Meds transitioned to liquid as able. Discussed with [facility] and the only one that won't work is the levothyroxine which he will have to crush and put in tube. (2) Pneumonia: Antibiotics as above. (3) COPD (chronic obstructive pulmonary disease): Continue duo nebs. On no maintenance inhalers for this. Unclear if true diagnosis. (4) Bronchiectasis: Consult pulmonology (5) Hypoxia: No oxygen requirement at home. Likely secondary to aspiration pneumonitis. Aim O2 sats > 90% (6) Esophageal stenosis: Notable history of this. No stenosis noted on recent EGD. will require gastrostomy tube, is cleared by pulmonary. (7) Hypothyroidism: Repeat TSH with a.m. labs continue levothyroxine 175 mcg p.o. daily (8) Laryngopharyngeal reflux: Continue pantoprazole 40 mg p.o. twice daily I suspect this caused the loss of his bronchiectasis as he continues to lie flat at night Elevate head of bed greater than 30 degrees at all times (9) History of celiac disease: Notable history of this. Unclear how this was diagnosed. He does not appear to be on a gluten-free diet at present. (10) BPH (benign prostatic hyperplasia): Notable history of this but was taken off medication I understand due to hypotension. Given ongoing symptoms if blood pressure stable will consider adding tamsulosin. (11) Anxiety state, unspecified: Continue his usual Lorazepam 1 mg p.o. at bedtime as needed (12) Severe protein-calorie malnutrition: Due to the above problem, patient has lost weight and has not been able to eat. Will continue withe the Gastrostomy tube feeding. Total Time Total Time Spent Total Time Spent (In Minutes): 35 Discharge Plan Discharge Items Patient Disposition: Home - Home Health Services Reason For Visit: HYPOXIA, ASPIRATION PNA Discharge Diagnosis: Aspiration pneumonia Activity: Resume your previous activity Non-emergency contact: Primary Care Provider Call non-emergency contact if: your symptoms worsen Follow-up/Referrals: Matthew Lopez [Physician] - (Please see Dr. Lopez in 2 weeks for follow up.) Umesh Mcintyre DO [Primary Care Provider] - Diet: Nothing by Mouth Addtl Attending Provider Instructions: Mr. Aguilar, You were admitted to the hospital with trouble swallowing from your known medical issues with your esophagus. At this point, we are recommending you get your nutrition through the PEG tube that Dr. Lopez placed this admission. Here are the dietary recommendations: * Fibersource HN, 350 mL bolus 4 times per day with 60 mL of water flushed b efore and after. * Additional 150 mL of free water flushed twice a day. * Follow up with nutrition in 2 weeks to adjust feedings if needed. * Monitor your weight every day to be sure you are not losing weight on this regimen. Have your PCP send a BMP, Magnesium, and Phosphate level in 1 week to be sure you're doing well. If you have any pain with the tube feeds, general abdominal pain, nausea, thro wing up (vomiting), fevers, chills, redness at the insertion site, or other concerns, please call Dr. Lopez's office or return to the hospital. For your pneumonia, you will be on linezolid and levofloxacin to help protect you from any bacteria in the lungs. Please take these until they are completely gone. Pending Studies at Discharge: No Stand-Alone Forms: [facility], Smoking Cessation Medications and DC Order Prescriptions: New linezolid 100 mg/5 mL suspension for reconstitution 600 mg PO Q12H 4 Days Qty: 300 RF: 0 aspirin 81 mg Tablet,Chewable 81 mg PEG QAM Qty: 30 RF: 0 lansoprazole [Prevacid SoluTab] 30 mg Tablet,Disintegrat, Delay Rel 30 mg G-tube BID Qty: 60 RF: 0 Fibersource HN 0.05 gram- 1.2 kcal/mL Liquid 350 ml G-tube [id number] Qty: 1 RF: 0 polyethylene glycol 3350 [Miralax] 17 gram Powder In Packet 17 g PEG DAILY PRN (Reason: constipation) Qty: 30 RF: 0 guaifenesin 100 mg/5 mL Liquid 600 mg PEG Q12 Qty: 473 RF: 0 levothyroxine 175 mcg/mL solution 175 mcg feeding tube DAILY Qty: 30 RF: 1 ondansetron HCl [Zofran] 4 mg tablet 4 mg PO TID PRN (Reason: nausea and vomiting) 5 Days Qty: 60 RF: 0 acetaminophen 500 mg/15 mL liquid 500 mg PO Q6H PRN (Reason: fever or pain) Qty: 240 RF: 0 lorazepam [Lorazepam Intensol] 2 mg/mL concentrate 1 mg PO HS PRN (Reason: insomnia) Qty: 30 RF: 0 tramadol 50 mg tablet 50 mg PO TID PRN (Reason: pain) Qty: 10 RF: 0 levofloxacin 250 mg/10 mL solution 750 mg PO DAILY 5 Days Qty: 150 RF: 0 Continued levetiracetam [Keppra] 100 mg/mL solution 750 mg PO BID Qty: 1419 RF: 0 multivitamin [Multiple Vitamins] tablet 1 tab PO QAM RF: 0 triamcinolone acetonide 0.5 % cream 1 appln topical BID PRN (Reason: Rash) RF: 0 simvastatin 40 mg tablet 40 mg PO DAILY RF: 0 mupirocin calcium 2 % cream 1 appln topical BID PRN (Reason: Rash) RF: 0 albuterol sulfate 1.25 mg/3 mL Solution For Nebulization 2.5 mg INHALATION BID RF: 0 Discontinued levothyroxine [Synthroid] 175 mcg tablet 175 mcg PO DAILY Qty: 90 RF: 2 pantoprazole 40 mg tablet,delayed release (DR/EC) 40 mg PO BID Qty: 180 RF: 0 lorazepam 1 mg tablet 1 mg PO HS PRN (Reason: insomnia) Qty: 90 RF: 0 aspirin 81 mg tablet,delayed release (DR/EC) 81 mg PO QAM RF: 0 Discharge Orders: Discharge Order (Routine); Ordered 07/03/20 Ordered By: Dany Perea Admission Data Admit Date/Time: 06/27/20 18:49 Attending Provider: Dany Perea Admit Provider: Joao Lowe Primary Care Provider: Umesh Mcintyre Other Providers: Joao Lowe ; Matthew Lopez ; Papa Lunsford ; Fabric[facility] Other Interventions: Discharge Summary Assessment (RN) Last Done: 07/03/20 13:24 Coding Level of Care Code D/C Day Management >30 mins Diagnoses Aspiration pneumonitis J69.0 Pneumonia J18.9 Laterality: bilateral Lung location: unspecified part of lung Pneumonia type: due to unspecified organism COPD (chronic obstructive pulmonary disease) J44.9 Bronchiectasis J47.9 Hypoxia R09.02 Esophageal stenosis K22.2 Hypothyroidism E03.9 Laryngopharyngeal reflux K21.9 History of celiac disease Z87.19 BPH (benign prostatic hyperplasia) N40.0 Anxiety state, unspecified F41.1 Severe protein-calorie malnutrition E43
== END 2020-07-03 17:03 | disposition home health service (06) | DRG 177 ==
LOC: ED 13:43 → SUATTDRO 18:49 → 2N 18:49